=== PATIENT | male | born 1970 | race Caucasian/White ===

== ENCOUNTER 2016-11-12 15:13 | Emergency (ER) | payer OTHER ==
[2016-11-12 15:24] VITALS: BP 125/72; PULSE 80; TEMP 98.4; BMI 28.1
[2016-11-12] MEDS ORDERED: ALBUTEROL SO4 2.5/IPRATROPIUM 0.5 INH SOL 3 ML VIAL.NEB. NEB ONE ×2 (16:37→16:42)
[2016-11-12] MEDS ORDERED: KETOROLAC TROMETHAMINE 60 MG/2 ML VIAL IM ONE (16:38)
[2016-11-12] MEDS ORDERED: KETOROLAC TROMETHAMINE 60 MG/2 ML VIAL ONE (16:42)
--- NOTE | 2016-11-12 18:01 | PDOC ---
History of Present Illness - General Chief Complaint: Headache Stated Complaint: HEADACHE Time Seen by Provider: 11/12/16 15:36 History Source: Patient, Patient Financial Specialist Used - History of Present Illness Initial Comments: 11/12/16 15:47 Pt. is a 46 y/o male with a PMH of asthma, presenting to [facility] complaining of headache x1 day and chest pain. The history and physical was completed with a elementary summer school teacher #[id number]. Pt. states his headache started yesterday and he saw "flashing lights" prior to his headache. The headache is on his left side and also goes to above the L eye. He describes the pain as throbbing and rates it a 5/10 in severity. Denies photo/phonophobia, N/V, fevers, chills, neck stiffness. Pt. also states he has chest pain for 8 months. He states the pain is sharp and on his left side. He states the pain is worse with a deep breath. He rates his chest pain a 4/10 He states he has needed his albuterol inhaler the past three days. Denies palpitations, edema, SOB. Past History - Past Medical History Allergies/Adverse Reactions: Allergies Allergy/AdvReac Type Severity Reaction Status Date / Time No Known Allergies Allergy Verified 11/12/16 15:20 Home Medications: Ambulatory Orders Albuterol Sulfate Inhaler - [Ventolin HFA Inhaler -] 2 inh PO Q4H PRN #1 inhaler 05/28/16 Clonazepam [Klonopin] 1 mg PO BID 05/28/16 Ibuprofen 800 mg PO TID PRN #21 tablet 11/12/16 Prednisone 20 mg PO BID #20 tablet 11/12/16 Asthma: Yes - Psycho/Social/Smoking Cessation Hx Anxiety: No Suicidal Ideation: No Smoking History: Never smoked Have you smoked in the past 12 months: No Number of Cigarettes Smoked Daily: 0 Information on smoking cessation initiated: No Hx Alcohol Use: No Drug/Substance Use Hx: No Substance Use Type: None Hx Substance Use Treatment: No *Physical Exam - Vital Signs Last Vital Signs Temp Pulse Resp BP Pulse Ox 98.4 F 80 16 125/72 98 11/12/16 15:22 11/12/16 15:22 11/12/16 15:22 11/12/16 15:22 11/12/16 15:22 - Physical Exam Comments: 11/12/16 15:56 General: NAD, AAOx3, sitting in chair with lights on in room AAOx3, VSS Head: Atraumatic; normocephalic ENT: PERRLA, EOMI, no sceral icterus. TM's pearly olsen with good landmarks and cone of light. No congestion noted. No redness of the posterior pharynx. Tonsils 1+ in size Neck: FROM without pain, (-) LAD Cardiac: Normal rate and rhythm. S1 and S2 heard. No M/R/G Pulmonary: Scattered wheezing heard B/L with fair aeration to the bases. Equal b/l chest rise. Neuro: Alert, awake, appropriate. Cranial nerves 2-12 intact. No deficits to light touch and temperature in face, upper extremities and lower extremities. No motor deficits in the face, upper/lower extremities. Normoreflexic in the upper and lower extremities. Signal Circuit Designer strength equal B/L. Normal speech. Toes are down- going bilaterally. Gait is normal without ataxia. EKG: Rate 60 bpm; normal sinus rhythm, no acute ST-T wave changes. ED Treatment Course - Medications Given in the ED: ED Medications Discontinued Medications Generic Name Dose Route Start Last Admin Trade Name Freq PRN Reason Stop Dose Admin Albuterol/Ipratropium 1 amp 11/12/16 16:37 11/12/16 17:03 Duoneb - NEB 11/12/16 16:38 1 amp ONCE ONE Administration Ketorolac Tromethamine 60 mg 11/12/16 16:38 11/12/16 17:03 Toradol Injection - IM 11/12/16 16:39 60 mg ONCE ONE Administration Medical Decision Making - Medical Decision Making 11/12/16 16:15 Mr. Khan is a 46 y/o male with a PMH of asthma who presents to [facility] with a headache and chest pain. Pt. did describe an aura prior to the onset of his headache. Neuro exam normal and the headache is unilateral. Most likely a migraine; will give toradol and re-evaluate. Given normal EKG, reproducible pain with a big breath, and the duration of the chest pain, less likely cardiac causes. Wheezing on exam, will give a duoneb treatment and re-evaluate 11/12/16 17:00 Duoneb treatment administered and lungs were re-examined. Pt. reports relief of chest pain and lungs are now clear on exam with fair aeration to the bases. Pt. also reports relief of his headache as his pain is now a 1/10. Discussed that the patient should use his albuterol inhaler daily for the next five days. Was also prescribed prednisone. Advised pt should see his PCP within the week, Pt. states he has an appointment tomorrow. Will discharge home at this time. *DC/Admit/Observation/Transfer Diagnosis at time of Disposition: Asthma exacerbation Headache Qualifiers: Headache type: unspecified Headache chronicity pattern: acute headache Intractability: not intractable Qualified Code(s): R51 - Headache - Discharge Dispostion Disposition: HOME Condition at time of disposition: Improved Admit: No - Prescriptions Prescriptions: Ibuprofen 800 mg PO TID PRN #21 tablet PRN Reason: Pain Prednisone 20 mg PO BID #20 tablet - Patient Instructions Printed Discharge Instructions: DI for Headache, Asthma -- Adult Additional Instructions: You have a headache and a asthma exacerbation. Take prednisone 20mg twice a day for 5 days for the asthma. Use your inhaler as needed. Take ibuprofen 800mg, for headache pain. Follow up with your primary care doctor. Return to the ED if you have, worsening chest pain, SOB, or worsening pain of your headache. Print Language: FRENCH - Post Discharge Activity Work/School Note: Back to Work
== END 2016-11-12 18:30 | disposition home or self-care (01) ==
LOC: JERFT 15:13
PROC: 3E0F7GC Introduction of Other Therapeutic Substance into Respiratory Tract, Via Natural or Artificial Opening (ICD-10-PCS; principal; 2016-11-12)
PROC: 3E0233Z Introduction of Anti-inflammatory into Muscle, Percutaneous Approach (ICD-10-PCS; 2016-11-12)
DX: J45.909 Unspecified asthma, uncomplicated (principal); R51 Headache
CPT/HCPCS: 94640; 96372; 99281-25

== ENCOUNTER 2017-05-02 15:11 | Emergency (ER) | payer SELFPAY ==
[2017-05-02 15:17] VITALS: BMI 32.3
[2017-05-02] MEDS ORDERED: IBUPROFEN 600 MG TABLET (FP) PO ONE ×2 (16:33→17:01)
--- NOTE | 2017-05-02 16:33 | PDOC ---
History of Present Illness - General Chief Complaint: Pain, Acute Stated Complaint: ABD PAIN Time Seen by Provider: 05/02/17 15:24 - History of Present Illness Initial Comments: 46 y/o male with a PMH of asthma and anxiety presenting with acute on chronic chest pain. States that he has had this pain before for at least a year but it is more severe today. Describes the pain as a sharp 4/10 non pleuritic, non positional, non exertional, non radiating pain that does not co-present with nausea, vomiting, diaphoresis, or SOB. He has not taken any medication for the pain either. Denies feves, chills, nausea, comiting, or any sick symptpms. He has been seen in the past for chest pain lat year with negative troponins and negative workup. 05/02/17 16:41 Past History - Past Medical History Allergies/Adverse Reactions: Allergies Allergy/AdvReac Type Severity Reaction Status Date / Time No Known Allergies Allergy Verified 05/02/17 15:12 Home Medications: Ambulatory Orders NK [No Known Home Medication] 05/02/17 Asthma: Yes - Suicide/Smoking/Psychosocial Hx Smoking History: Never smoked Have you smoked in the past 12 months: No Number of Cigarettes Smoked Daily: 0 Information on smoking cessation initiated: No Hx Alcohol Use: No Drug/Substance Use Hx: No Substance Use Type: None Hx Substance Use Treatment: No Review of Systems - Review of Systems Constitutional: No: Chills, Diaphoresis, Fever HEENTM: No: Blurred Vision, Recent change in vision, Double Vision Respiratory: No: Cough, Shortness of Breath Cardiac (ROS): Yes: Chest Pain. No: Irregular Heart Rate, Chest Tightness ABD/GI: No: Constipated : No: Burning, Dysuria, Discharge Musculoskeletal: No: Back Pain Neurological: No: Headache, Numbness *Physical Exam - Vital Signs Last Vital Signs Temp Pulse Resp BP Pulse Ox 98.1 F 84 20 135/7 97 05/02/17 15:14 05/02/17 15:14 05/02/17 15:14 05/02/17 15:14 05/02/17 15:14 - Physical Exam General Appearance: Yes: Nourished, Appropriately Dressed. No: Apparent Distress HEENT: positive: EOMI, JOSSELIN, Normal ENT Inspection, Normal Voice Neck: positive: Trachea midline, Normal Thyroid, Supple. negative: Tender, Rigid Respiratory/Chest: positive: Chest Tender (Tenderness in the left inframamary crease), Lungs Clear, Normal Breath Sounds. negative: Respiratory Distress, Accessory Muscle Use Cardiovascular: positive: Regular Rhythm, Regular Rate Gastrointestinal/Abdominal: positive: Normal Bowel Sounds, Flat, Soft. negative : Tender Musculoskeletal: positive: Normal Inspection Integumentary: positive: Normal Color, Dry, Warm Neurologic: positive: Fully Oriented, Alert, Normal Mood/Affect Heart Score/ECG Review - ST and T Non Specific ST-T Wave changes: Yes ED Treatment Course - LABORATORY CBC & Chemistry Diagram: 05/02/17 16:12 05/02/17 16:12 Medical Decision Making - Medical Decision Making 46 year old male with sharp chest pain without copresenting symptoms or alarming quality. Improved after 600 ibuprofen. Trop and EKG negative. Non specific ST changes in V2 and V3. Will DC home with cards followup. 05/02/17 19:31 *DC/Admit/Observation/Transfer Diagnosis at time of Disposition: Chest pain - Discharge Dispostion Disposition: HOME Condition at time of disposition: Improved Admit: No - Referrals Referrals: Raymundo Vang MD [Staff Physician] - - Patient Instructions Additional Instructions: Please make an appointment with the hogshead press operator on this sheet.
[2017-05-02] MEDS ORDERED: ALBUTEROL SO4 2.5/IPRATROPIUM 0.5 INH SOL 3 ML VIAL.NEB. NEB ONE ×2 (16:40→17:01)
[2017-05-02 16:44] LABS: BASOPHIL 0.7 % (0-2.0); EOSINOPHIL 4.8 % (0-4.5); MCH 29.7 pg (25.7-33.7); MCHC 33.6 g/dl (32.0-35.9); MEAN CELL VOLUME 88.5 fl (80-96); MEAN PLT VOLUME 8.9 fl (7.5-11.1); NEUTROPHILS 67.4 % (42.8-82.8); PLATELET COUNT 252 K/MM3 (134-434); RDW 13.8 % (11.9-15.9); WHITE BLOOD COUNT 7.8 K/mm3 (4.0-10.0)
--- NOTE | 2017-05-02 17:01 | PDOC ---
Attending Attestation - Resident Resident Name: Smith Montague - ED Attending Attestation I have performed the following: I have examined & evaluated the patient, The case was reviewed & discussed with the resident, I agree w/resident's findings & plan, Exceptions are as noted - HPI HPI: 05/02/17 16:58 46y M no pmhx presents with complaint of substernal chest pressure 5/10, intermittent, non exertional, non pleuritic, no associtaed n/v, diaphoresis, sob. last episode was at 8am, onset after he swallowed something, and the nresolved. pt notes he has had intermittent cp for the past year but todays cp was a bit different from previous. no exertional sypmtoms. pt works in [employer]. no smoking, recreational drug use pmd: lesly - Physicial Exam PE: 05/02/17 19:22 GENERAL: The patient is awake, alert, and fully oriented, Nontoxic - in no acute distress. HEAD: Normocephalic, atraumatic. EYES: extraocular movements intact, sclera anicteric, conjunctiva clear. ENT: Normal voice, Moist mucous membranes. NECK: Normal range of motion, supple LUNGS: Breath sounds equal, clear to auscultation bilaterally. No wheezes, no rhonchi, no rales. HEART: Regular rate and rhythm, normal S1 and S2 without murmur, rub or gallop. ABDOMEN: Soft, nontender, normoactive bowel sounds. No guarding, no rebound. . No CVA tenderness EXTREMITIES: Normal range of motion, no edema. No clubbing or cyanosis. No cords, erythema, or tenderness. NEUROLOGICAL: No facial assymetry, Normal speech, PSYCH: Normal mood, normal affect. SKIN: Warm, Dry, normal turgor, - Medical Decision Making 05/02/17 19:22 suspect his pain this AM was GI in nature will obtian trop x 1 currently asypmtomatic will dc with pmd fu and cardiology follow up for his chronic chest pain Heart Score/ECG Review - ECG Impressions Comment:: 05/02/17 19:23 Twelve-lead EKG was performed and reviewed by me. There is normal sinus rhythm with a normal rate. Rate of 70 The axis is normal. The intervals are normal. There is normal R wave progression There are no ST or T wave abnormalities. Impression: Normal twelve-lead EKG
[2017-05-02 17:09] LABS: ALBUMIN 3.8 g/dl (3.4-5.0); ANION GAP 10 (8-16); CALCIUM 8.9 mg/dL (8.5-10.1); CO2 27 mmol/L (21-32); GLUCOSE,RANDOM 87 mg/dL (74-106); SGOT/AST 18 U/L (15-37); SGPT/ALT 25 U/L (12-78)
[2017-05-02 17:13] LABS: ALK PHOS 114 U/L (45-117); BILIRUBIN,TOTAL 0.9 mg/dL (0.2-1.0); CPK 163 IU/L (39-308); TOT PROT 7.5 g/dl (6.4-8.2); TROPONIN I < 0.02 ng/ml (0.00-0.05)
[2017-05-02 18:15] LABS: CPK 156 IU/L (39-308); TROPONIN I < 0.02 ng/ml (0.00-0.05)
[2017-05-02 19:05] VITALS: BP 132/66; PULSE 67; TEMP 98.7
--- NOTE | 2017-05-03 19:13 | EKG ---
Test Reason : Blood Pressure : / mmHG Vent. Rate : 070 BPM Atrial Rate : 070 BPM P-R Int : 150 ms QRS Dur : 084 ms QT Int : 356 ms P-R-T Axes : 054 030 033 degrees QTc Int : 384 ms NORMAL SINUS RHYTHM NORMAL ECG WHEN COMPARED WITH ECG OF 02-FEB-2016 19:04, NO SIGNIFICANT CHANGE WAS FOUND REPEAT EKG IF CLINICALLY INDICATED Confirmed by CLAUDIA CHACON MD ([id number]) on 05/03/2017 7:13:09 PM Referred By: Confirmed By:CLAUDIA CHACON MD
== END 2017-05-02 19:58 | disposition home or self-care (01) ==
LOC: JER 15:11
PROC: 3E0F7GC Introduction of Other Therapeutic Substance into Respiratory Tract, Via Natural or Artificial Opening (ICD-10-PCS; principal; 2017-05-02)
DX: R07.9 Chest pain, unspecified (principal); F41.9 Anxiety disorder, unspecified; J45.909 Unspecified asthma, uncomplicated
CPT/HCPCS: 36415; 80053; 82553; 83690; 84484; 85025; 93005; 93010; 99283-25

== ENCOUNTER 2017-11-04 17:36 | Emergency (ER) | payer SELFPAY ==
--- NOTE | 2017-11-04 17:47 | PDOC ---
Rapid Medical Evaluation Time Seen by Provider: 11/04/17 17:45 Medical Evaluation: Allergies Allergy/AdvReac Type Severity Reaction Status Date / Time No Known Allergies Allergy Verified 05/02/17 15:12 11/04/17 17:45 I have performed a brief in-person evaluation of this patient. The patient presents with a chief complaint of: new onset chest pain, "like burning pressure" 02/03, hx of asthma Pertinent physical exam findings: VSS I have ordered the following: ekg, cxr, labs The patient will proceed to the ED for further evaluation. Discharge Disposition - Diagnosis Chest pain - Referrals - Patient Instructions - Post Discharge Activity
[2017-11-04 17:48] VITALS: BP 146/89; PULSE 76; TEMP 98.6; BMI 31.2
[2017-11-04 19:18] LABS: BASO % 0.8 % (0-2.0); EOS % 4.9 % (0-4.5); HEMATOCRIT 47.9 % (35.4-49); HEMOGLOBIN 16.5 GM/dL (11.7-16.9); LYMPH % 18.8 % (8-40); MCH 30.4 pg (25.7-33.7); MCHC 34.5 g/dl (32.0-35.9); MEAN CELL VOLUME 88.2 fl (80-96); MEAN PLT VOLUME 8.7 fl (7.5-11.1); MONO % 6.8 % (3.8-10.2); NEUT % 68.7 % (42.8-82.8); PLATELET COUNT 280 K/MM3 (134-434); RBC 5.43 M/mm3 (4.00-5.60); WHITE BLOOD COUNT 8.3 K/mm3 (4.0-10.0)
[2017-11-04 19:38] LABS: INR 1.05 (0.82-1.09); PROTHROMBIN TIME (PATIENT) 11.9 SEC (9.98-11.88)
[2017-11-04 21:12] LABS: ALBUMIN 4.3 g/dl (3.4-5.0); ALK PHOS 120 U/L (45-117); ANION GAP 6 (8-16); BILIRUBIN,TOTAL 0.4 mg/dL (0.2-1.0); BLOOD UREA NITROGEN 15 mg/dL (7-18); CALCIUM 8.9 mg/dL (8.5-10.1); CHLORIDE 104 mmol/L (98-107); CO2 27 mmol/L (21-32); CREATININE 0.9 mg/dL (0.7-1.3); GLUCOSE,RANDOM 101 mg/dL (74-106); MAGNESIUM 2.3 mg/dL (1.8-2.4); POTASSIUM 4.1 mmol/L (3.5-5.1); SGOT/AST 19 U/L (15-37); SGPT/ALT 30 U/L (12-78); SODIUM 137 mmol/L (136-145); TOT PROT 8.2 g/dl (6.4-8.2)
[2017-11-05] MEDS ORDERED: PANTOPRAZOLE 40 MG TABLET (FP) PO ONE (03:14)
--- NOTE | 2017-11-05 03:14 | PDOC ---
History of Present Illness - General History Source: Patient Exam Limitations: No Limitations - History of Present Illness Initial Comments: 11/05/17 04:16 The patient is a 47 year old male with a significant PMH of anxiety and asthma who presents to the emergency department with chest pain beginning approximately last night. The patient describes his chest pain as a moderate discomfort localized in the epigastric region with radiation across his chest. He reports eating yesterday at about 5PM and subsequently developing this sensation. The patient reports mild chest discomfort at presentation. He denies past history of diabetes or HTN. The patient denies shortness of breath, headache and dizziness. Denies fever, chills, nausea, vomit, diarrhea and constipation. Denies dysuria, frequency, urgency and hematuria. Allergies: NKA Past surgical history: None reported. Social history: No reported cigarette, alcohol, or drug use. PCP: Dr. Kaiser Hannon <Kirk Morin - Last Filed: 11/05/17 04:17> - General History Source: Patient <Obye Steinberg - Last Filed: 11/05/17 19:28> - General Chief Complaint: Chest Pain Stated Complaint: CHEST PAIN Time Seen by Provider: 11/04/17 17:45 Past History <Kirk Morin - Last Filed: 11/05/17 04:17> - Past Medical History Asthma: Yes COPD: No Psychiatric Problems: Yes (anxiety) - Suicide/Smoking/Psychosocial Hx Smoking History: Never smoked Have you smoked in the past 12 months: No Number of Cigarettes Smoked Daily: 0 Information on smoking cessation initiated: No Hx Alcohol Use: No Drug/Substance Use Hx: No Substance Use Type: None Hx Substance Use Treatment: No <Obey Steinberg - Last Filed: 11/05/17 19:28> - Past Medical History Allergies/Adverse Reactions: Allergies Allergy/AdvReac Type Severity Reaction Status Date / Time No Known Allergies Allergy Verified 11/04/17 17:48 Home Medications: Ambulatory Orders Pantoprazole Sodium [Protonix] 40 mg PO ONCE #30 tablet.ec 11/05/17 Review of Systems - Review of Systems Able to Perform ROS?: Yes Comments:: 11/05/17 04:16 CONSTITUTIONAL: Absent: fever, chills, diaphoresis, generalized weakness, malaise, loss of appetite HEENT: Absent: rhinorrhea, nasal congestion, throat pain, throat swelling, difficulty swallowing, mouth swelling, ear pain, eye pain, visual Changes CARDIOVASCULAR: (+) Chest discomfort with radiation from epigastric region. Absent: syncope, palpitations, irregular heart rate, lightheadedness, peripheral edema RESPIRATORY: Absent: cough, shortness of breath, dyspnea with exertion, orthopnea, wheezing, stridor, hemoptysis GASTROINTESTINAL: Absent: abdominal pain, abdominal distension, nausea, vomiting, diarrhea, constipation, melena, hematochezia GENITOURINARY: Absent: dysuria, frequency, urgency, hesitancy, hematuria, flank pain, genital pain MUSCULOSKELETAL: Absent: myalgia, arthralgia, joint swelling SKIN: Absent: rash, itching, pallor HEMATOLOGIC/IMMUNOLOGIC: Absent: easy bleeding, easy bruising, lymphadenopathy, frequent infections ENDOCRINE: Absent: unexplained weight gain, unexplained weight loss, heat intolerance, cold intolerance NEUROLOGIC: Absent: headache, focal weakness or paresthesias, dizziness, unsteady gait, seizure, mental status changes, bladder or bowel incontinence PSYCHIATRIC: Absent: anxiety, depression, suicidal or homicidal ideation, hallucinations. <Kirk Morin - Last Filed: 11/05/17 04:17> *Physical Exam - Vital Signs Last Vital Signs Temp Pulse Resp BP Pulse Ox 98.6 F 76 19 146/89 98 11/04/17 17:47 11/04/17 17:47 11/04/17 17:47 11/04/17 17:47 11/04/17 17:47 - Physical Exam Comments: 11/05/17 04:16 GENERAL: Well developed, well nourished. Awake and alert. No acute distress. HEENT: Normocephalic, atraumatic. PERRLA, EOMI. No conjunctival pallor. Sclera are non- icteric. Moist mucous membranes. Oropharynx is clear. NECK: Supple. Full ROM. No JVD. Carotid pulses 2+ and symmetric, without bruits. No thyromegaly. No lymphadenopathy. CARDIOVASCULAR: Regular rate and rhythm. No murmurs, rubs, or gallops. Distal pulses are 2+ and symmetric. PULMONARY: No evidence of respiratory distress. Lungs clear to auscultation bilaterally. No wheezing, rales or rhonchi. ABDOMINAL: Soft. Non-tender. Non-distended. No rebound or guarding. No organomegaly. Normoactive bowel sounds. MUSCULOSKELETAL Normal range of motion at all joints. No bony deformities or tenderness. No CVA tenderness. EXTREMITIES: No cyanosis. No clubbing. No edema. No calf tenderness. SKIN: Warm and dry. Normal capillary refill. No rashes. No jaundice. NEUROLOGICAL: Alert, awake, appropriate. Cranial nerves 2-12 intact. No deficits to light touch and temperature in face, upper extremities and lower extremities. No motor deficits in the in face, upper extremities and lower extremities. Normoreflexic in the upper and lower extremities. Normal speech. Toes are downgoing bilaterally. Gait is normal without ataxia. PSYCHIATRIC: Cooperative. Good eye contact. Appropriate mood and affect. <Kirk Morin - Last Filed: 11/05/17 04:17> - Vital Signs Last Vital Signs Temp Pulse Resp BP Pulse Ox 98.6 F 76 19 146/89 98 11/04/17 17:47 11/04/17 17:47 11/04/17 17:47 11/04/17 17:47 11/04/17 17:47 <Obey Steinberg - Last Filed: 11/05/17 19:28> Heart Score/ECG Review #1 11/05/17 04:17 EKG done at 17:43 Vent rate 75 bpm Normal sinus rhythm Normal ECG <Kirk Morin - Last Filed: 11/05/17 04:17> ED Treatment Course - LABORATORY CBC & Chemistry Diagram: 11/04/17 18:56 11/04/17 20:33 - ADDITIONAL ORDERS Additional order review: Laboratory Results 11/05/17 11/04/17 11/04/17 03:26 20:33 20:33 PT with INR INR Sodium 137 Potassium 4.1 Chloride 104 Carbon Dioxide 27 Anion Gap 6 L BUN 15 Creatinine 0.9 Creat Clearance w eGFR > 60 Random Glucose 101 Calcium 8.9 Magnesium 2.3 Total Bilirubin 0.4 D AST 19 ALT 30 Alkaline Phosphatase 120 H Creatine Kinase 141 153 Creatine Kinase Index 0.6 CK-MB (CK-2) < 1.000 Troponin I < 0.02 < 0.02 Total Protein 8.2 Albumin 4.3 11/04/17 11/04/17 11/04/17 18:56 18:56 18:56 PT with INR 11.90 H INR 1.05 Sodium Cancelled Potassium Cancelled Chloride Cancelled Carbon Dioxide Cancelled Anion Gap Cancelled BUN Cancelled Creatinine Cancelled Creat Clearance w eGFR Cancelled Random Glucose Cancelled Calcium Cancelled Magnesium Cancelled Total Bilirubin Cancelled AST Cancelled ALT Cancelled Alkaline Phosphatase Cancelled Creatine Kinase Cancelled Creatine Kinase Index CK-MB (CK-2) Troponin I Cancelled Total Protein Cancelled Albumin Cancelled 11/04/17 18:56 RBC 5.43 MCV 88.2 MCHC 34.5 RDW 14.0 MPV 8.7 Neutrophils % 68.7 Lymphocytes % 18.8 Monocytes % 6.8 Eosinophils % 4.9 H Basophils % 0.8 - Medications Given in the ED: ED Medications Discontinued Medications Generic Name Dose Route Start Last Admin Trade Name Freq PRN Reason Stop Dose Admin Pantoprazole Sodium 40 mg 11/05/17 03:14 11/05/17 03:20 Protonix - PO 11/05/17 03:15 40 mg ONCE ONE Administration <Kirk Morin - Last Filed: 11/05/17 04:17> - LABORATORY CBC & Chemistry Diagram: 11/04/17 18:56 11/04/17 20:33 - ADDITIONAL ORDERS Additional order review: Laboratory Results 11/04/17 11/04/17 11/04/17 20:33 20:33 18:56 PT with INR INR Sodium 137 Potassium 4.1 Chloride 104 Carbon Dioxide 27 Anion Gap 6 L BUN 15 Creatinine 0.9 Creat Clearance w eGFR > 60 Random Glucose 101 Calcium 8.9 Magnesium 2.3 Cancelled Total Bilirubin 0.4 D AST 19 ALT 30 Alkaline Phosphatase 120 H Creatine Kinase 153 Creatine Kinase Index 0.6 CK-MB (CK-2) < 1.000 Troponin I < 0.02 Total Protein 8.2 Albumin 4.3 11/04/17 11/04/17 18:56 18:56 PT with INR 11.90 H INR 1.05 Sodium Cancelled Potassium Cancelled Chloride Cancelled Carbon Dioxide Cancelled Anion Gap Cancelled BUN Cancelled Creatinine Cancelled Creat Clearance w eGFR Cancelled Random Glucose Cancelled Calcium Cancelled Magnesium Total Bilirubin Cancelled AST Cancelled ALT Cancelled Alkaline Phosphatase Cancelled Creatine Kinase Cancelled Creatine Kinase Index CK-MB (CK-2) Troponin I Cancelled Total Protein Cancelled Albumin Cancelled 11/04/17 18:56 RBC 5.43 MCV 88.2 MCHC 34.5 RDW 14.0 MPV 8.7 Neutrophils % 68.7 Lymphocytes % 18.8 Monocytes % 6.8 Eosinophils % 4.9 H Basophils % 0.8 <Obey Steinberg - Last Filed: 11/05/17 19:28> Medical Decision Making - Medical Decision Making 11/05/17 19:28 scribe noteDr. Idris: The scribe's documentation has been prepared under my direction and personally reviewed by me in its entirery. I confirm that the note above accurately reflects all work, treatment, procedures, and medical decision making performed by me. <Obey Steinberg - Last Filed: 11/05/17 19:28> *DC/Admit/Observation/Transfer - Attestations Scribe Attestion: 11/05/17 04:18 Documentation prepared by Kirk Morin, acting as forensic medical examiner for Obey Steinberg DO. <Kirk Morin - Last Filed: 11/05/17 04:17> - Discharge Dispostion Admit: No <Obey Steinberg - Last Filed: 11/05/17 19:28> Diagnosis at time of Disposition: Chest pain - Discharge Dispostion Disposition: HOME Condition at time of disposition: Stable - Prescriptions Prescriptions: Pantoprazole Sodium [Protonix] 40 mg PO ONCE #30 tablet.ec - Referrals Referrals: Melanie De Leon MD [Primary Care Provider] - Daquan Arceo MD [Staff Physician] - Chan Hinkle MD [Staff Physician] - - Patient Instructions Printed Discharge Instructions: DI for Chest Pain Additional Instructions: Please follow up with your doctor or the doctor referred to you if you develope chest pain. Return if any problems. Print Language: EQUATORIAL GUINEAN - Post Discharge Activity
[2017-11-05] MEDS ORDERED: PANTOPRAZOLE 40 MG TABLET (FP) ONE (03:17)
--- NOTE | 2017-11-05 11:05 | EKG ---
Test Reason : Blood Pressure : / mmHG Vent. Rate : 075 BPM Atrial Rate : 075 BPM P-R Int : 150 ms QRS Dur : 090 ms QT Int : 348 ms P-R-T Axes : 050 011 039 degrees QTc Int : 388 ms NORMAL SINUS RHYTHM NORMAL ECG WHEN COMPARED WITH ECG OF 02-MAY-2017 16:22, NO SIGNIFICANT CHANGE WAS FOUND Confirmed by ERIKA ALLISON MD ([id number]) on 11/05/2017 11:05:39 AM Referred By: Confirmed By:ERIKA ALLISON MD
== END 2017-11-05 04:12 | disposition home or self-care (01) ==
LOC: JER 17:36
DX: R07.89 Other chest pain (principal); J45.909 Unspecified asthma, uncomplicated; F41.9 Anxiety disorder, unspecified
CPT/HCPCS: 36415; 71046-TC-FY; 80053; 82550; 82553; 83735; 84484; 85025; 85610; 93005; 93010; 99282-25

== ENCOUNTER 2017-11-24 18:59 | Emergency (ER) | payer SELFPAY ==
[2017-11-24 19:04] VITALS: BMI 32.2
[2017-11-24] MEDS ORDERED: ACETAMINOPHEN 1000 MG/100 ML VIAL (NON FORMULARY) IVPB ONE (20:04)
[2017-11-24] MEDS ORDERED: SODIUM CHLORIDE 1,000 ML IV STA (20:05)
[2017-11-24 20:20] LABS: BASO % 0.2 % (0-2.0); EOS % 0.1 % (0-4.5); HEMATOCRIT 39.9 % (35.4-49); HEMOGLOBIN 13.8 GM/dL (11.7-16.9); LYMPH % 3.9 % (8-40); MCH 30.6 pg (25.7-33.7); MCHC 34.7 g/dl (32.0-35.9); MEAN CELL VOLUME 88.1 fl (80-96); MEAN PLT VOLUME 8.9 fl (7.5-11.1); MONO % 4.1 % (3.8-10.2); NEUT % 91.7 % (42.8-82.8); PLATELET COUNT 199 K/MM3 (134-434); RBC 4.53 M/mm3 (4.00-5.60); RDW 13.8 % (11.9-15.9); WHITE BLOOD COUNT 15.3 K/mm3 (4.0-10.0)
[2017-11-24 20:23] LABS: URINE APPEARANCE CLEAR; URINE BILIRUBIN NEGATIVE (<2.0 mg/dL); URINE BLOOD 1+ (NEGATIVE); URINE COLOR STRAW; URINE GLUCOSE (UA) NEGATIVE (NEGATIVE); URINE KETONE NEGATIVE (NEGATIVE); URINE LEUK ESTERASE NEGATIVE (NEGATIVE); URINE NITRITE NEGATIVE (NEGATIVE); URINE PROTEIN NEGATIVE (NEGATIVE); URINE UROBILINOGEN NEGATIVE mg/dL (0.2-1.0)
--- NOTE | 2017-11-24 20:38 | PDOC ---
History of Present Illness <Marina Torresan - Last Filed: 11/24/17 22:38> - General History Source: Patient Exam Limitations: No Limitations - History of Present Illness Initial Comments: 11/24/17 20:28 47 with pmh of asthma and anxiety presents with lower right-sided back pain and low grade fever for the past few hours. 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 Complains of some muscular pain over thighs but denies pains and needles, numbness or weakness over legs. States his fever earlier today was "114" <King Davey - Last Filed: 11/24/17 22:48> - General Chief Complaint: Pain Stated Complaint: FEVER Time Seen by Provider: 11/24/17 19:39 Past History <Riccardo Torres - Last Filed: 11/24/17 22:38> - Past Medical History Asthma: Yes COPD: No Psychiatric Problems: Yes (anxiety) - Suicide/Smoking/Psychosocial Hx Smoking History: Never smoked Have you smoked in the past 12 months: No Number of Cigarettes Smoked Daily: 0 Information on smoking cessation initiated: No Hx Alcohol Use: No Drug/Substance Use Hx: No Substance Use Type: None Hx Substance Use Treatment: No <King Davey - Last Filed: 11/24/17 22:48> - Past Medical History Allergies/Adverse Reactions: Allergies Allergy/AdvReac Type Severity Reaction Status Date / Time No Known Allergies Allergy Verified 11/24/17 19:00 Home Medications: Ambulatory Orders Pantoprazole Sodium [Protonix] 40 mg PO ONCE #30 tablet.ec 11/05/17 Azithromycin 250 mg PO DAILY #4 tablet 11/24/17 Review of Systems - Review of Systems Able to Perform ROS?: Yes Is the patient limited French proficient: Yes Constitutional: Yes: Fever HEENTM: No: Symptoms Reported Respiratory: No: Symptoms reported Cardiac (ROS): No: Symptoms Reported ABD/GI: No: Symptoms Reported : No: Symptoms Reported Musculoskeletal: Yes: See HPI Integumentary: No: Symptoms Reported Neurological: No: Symptoms reported All Other Systems: Reviewed and Negative <King Davey - Last Filed: 11/24/17 22:48> *Physical Exam - Vital Signs Last Vital Signs Temp Pulse Resp BP Pulse Ox 100.0 F H 115 H 18 119/73 100 11/24/17 19:02 11/24/17 19:02 11/24/17 19:02 11/24/17 19:02 11/24/17 19:02 <Riccardo Torres - Last Filed: 11/24/17 22:38> - Vital Signs Last Vital Signs Temp Pulse Resp BP Pulse Ox 100.0 F H 115 H 18 119/73 100 11/24/17 19:02 11/24/17 19:02 11/24/17 19:02 11/24/17 19:02 11/24/17 19:02 - Physical Exam General Appearance: Yes: Nourished, Appropriately Dressed. No: Apparent Distress HEENT: positive: EOMI, JOSSELIN, Normal ENT Inspection Respiratory/Chest: positive: Lungs Clear, Normal Breath Sounds. negative: Chest Tender, Respiratory Distress Cardiovascular: positive: Regular Rhythm, Regular Rate, S1, S2 Gastrointestinal/Abdominal: positive: Normal Bowel Sounds, Flat, Soft. negative : Tender Musculoskeletal: positive: Normal Inspection. negative: CVA Tenderness, Vertebral Tenderness Integumentary: positive: Normal Color, Dry, Warm Neurologic: positive: Fully Oriented, Alert, Normal Mood/Affect, Normal Response , Motor Strength 5/5 <King Davey - Last Filed: 11/24/17 22:48> ED Treatment Course - LABORATORY CBC & Chemistry Diagram: 11/24/17 20:15 11/24/17 20:15 - ADDITIONAL ORDERS Additional order review: Laboratory Results 11/24/17 11/24/17 20:15 20:15 Sodium 137 Potassium 3.4 L Chloride 104 Carbon Dioxide 29 Anion Gap 4 L BUN 14 Creatinine 1.0 Creat Clearance w eGFR > 60 Random Glucose 93 Calcium 8.4 L Total Bilirubin 0.9 D AST 20 ALT 23 D Alkaline Phosphatase 98 Total Protein 7.3 Albumin 4.0 Urine Color Straw Urine Appearance Clear Urine pH 8.0 D Ur Specific [place] 1.006 Urine Protein Negative Urine Glucose (UA) Negative Urine Ketones Negative Urine Blood 1+ H Urine Nitrite Negative Urine Bilirubin Negative Urine Urobilinogen Negative Ur Leukocyte Esterase Negative Urine WBC (Auto) <1 Urine RBC (Auto) None 11/24/17 21:38 Influenza Types A,B Antigen (PROSPER) - Final Nasopharyngeal Swab - Final 11/24/17 20:15 RBC 4.53 MCV 88.1 MCHC 34.7 RDW 13.8 MPV 8.9 Neutrophils % 91.7 H D Lymphocytes % 3.9 L D Monocytes % 4.1 Eosinophils % 0.1 D Basophils % 0.2 - RADIOLOGY Radiology Studies Ordered: Category Date Time Status CHEST PA & LAT [RAD] Stat Radiology 11/24/17 21:03 Taken - Medications Given in the ED: ED Medications Discontinued Medications Generic Name Dose Route Start Last Admin Trade Name Norberto PRN Reason Stop Dose Admin Acetaminophen 1,000 mg 11/24/17 20:04 11/24/17 20:50 Ofirmev Injection - IVPB 11/24/17 20:05 1,000 mg ONCE ONE Administration Sodium Chloride 1,000 mls @ 1,000 mls/hr 11/24/17 20:05 11/24/17 20:50 Normal Saline - IV 11/24/17 21:04 1,000 mls/hr ASDIR STA Administration <Riccardo Torres - Last Filed: 11/24/17 22:38> - LABORATORY CBC & Chemistry Diagram: 11/24/17 20:15 11/24/17 20:15 - ADDITIONAL ORDERS Additional order review: Laboratory Results 11/24/17 20:15 Urine Color Straw Urine Appearance Clear Urine pH 8.0 D Ur Specific [place] 1.006 Urine Protein Negative Urine Glucose (UA) Negative Urine Ketones Negative Urine Blood 1+ H Urine Nitrite Negative Urine Bilirubin Negative Urine Urobilinogen Negative Ur Leukocyte Esterase Negative Urine WBC (Auto) <1 Urine RBC (Auto) None 11/24/17 20:15 RBC 4.53 MCV 88.1 MCHC 34.7 RDW 13.8 MPV 8.9 Neutrophils % 91.7 H D Lymphocytes % 3.9 L D Monocytes % 4.1 Eosinophils % 0.1 D Basophils % 0.2 <King Davey - Last Filed: 11/24/17 22:48> Medical Decision Making - Medical Decision Making 11/24/17 22:23 47m with pmh of asthma and anxiety on Klonipin every day, presenting with generalized muscle pain and low grade fever. Will draw basic labs, CXR give fluids and tylenol. elevated wbc 11/24/17 22:46 Possible pneumonia on cxr will start patient on azithromycin and follow up outpatient <King Davey - Last Filed: 11/24/17 22:48> *DC/Admit/Observation/Transfer <MelissaRiccardo - Last Filed: 11/24/17 22:38> <King Davey - Last Filed: 11/24/17 22:48> Diagnosis at time of Disposition: CAP (community acquired pneumonia) - Prescriptions Prescriptions: Azithromycin 250 mg PO DAILY #4 tablet - Referrals Referrals: Melanie De Leon MD [Primary Care Provider] - - Patient Instructions Printed Discharge Instructions: DI for Pneumonia -- Adult Additional Instructions: Your X ray showed that you may have pneumonia. Take the antibiotics as prescribed. (Azithromycin 250mg once daily for 4 days, starting tomorrow) Follow up with your primary doctor within 1 week. If you experience high or persistent fevers, chest pain, shortness of breath, or any other concerning symptoms, return to the ER immediately.
[2017-11-24 20:47] LABS: ANION GAP 4 (8-16); BLOOD UREA NITROGEN 14 mg/dL (7-18); CALCIUM 8.4 mg/dL (8.5-10.1); CHLORIDE 104 mmol/L (98-107); CO2 29 mmol/L (21-32); GLUCOSE,RANDOM 93 mg/dL (74-106); POTASSIUM 3.4 mmol/L (3.5-5.1); SGOT/AST 20 U/L (15-37); SODIUM 137 mmol/L (136-145)
[2017-11-24 20:49] LABS: ALK PHOS 98 U/L (45-117); BILIRUBIN,TOTAL 0.9 mg/dL (0.2-1.0); SGPT/ALT 23 U/L (12-78); TOT PROT 7.3 g/dl (6.4-8.2)
--- NOTE | 2017-11-24 21:16 | PDOC ---
Attending Attestation - Resident Resident Name: King Davey - ED Attending Attestation I have performed the following: I have examined & evaluated the patient, The case was reviewed & discussed with the resident, I agree w/resident's findings & plan, Exceptions are as noted - HPI HPI: 11/24/17 21:12 47 M with h/o asthma presents to ED with fevers and bodyaches x 1 day. Pt states that he has had sick contacts at work with similar symptoms. States that he has bodyaches in his sides and legs. Denies any midline back pain, denies leg weakness/numbness. Denies incontinence. Denies saddle anesthesia. Denies IV drug use. Pt states that he also started having fevers today. Does not know what his temperature was. Denies N/V/D. Denies cough. Denies CP/SOB. Denies MILLS/ neck stiffness. - Physicial Exam PE: 11/24/17 21:14 "GENERAL: Awake, alert, and fully oriented, in no acute distress. HEAD: No signs of trauma EYES: PERRLA, EOMI, sclera anicteric, conjunctiva clear ENT: Auricles normal inspection, hearing grossly normal, nares patent, oropharynx clear without exudates. Moist mucosa NECK: Nontender, no stepoffs, Normal ROM, supple, no lymphadenopathy, JVD, or masses LUNGS: Breath sounds equal, clear to auscultation bilaterally. No wheezes, and no crackles HEART: Regular rate and rhythm, normal S1 and S2, no murmurs, rubs or gallops ABDOMEN: Soft, nontender, normoactive bowel sounds. No guarding, no rebound. No masses EXTREMITIES: Normal range of motion, no edema. No clubbing or cyanosis. No cords, erythema, or tenderness NEUROLOGICAL: Cranial nerves II through XII intact. 5/5 strength and sensation in all extremities, Normal speech, normal gait, normal cerebellar function SKIN: Warm, Dry, normal turgor, no rashes or lesions noted. " - Medical Decision Making 11/24/17 21:15 47 M with fevers and bodyaches x 1 day. Possible flu vs other viral syndrome. Pt with no focal infectious symptoms. Is complaining of bodyaches including sides and legs. Does not have any midline spinal tenderness on exam. Normal neuro exam. - Labs, UA, CXR, flu swab - Tylenol, IVF 11/24/17 22:36 Labs notable for leukocytosis 15, otherwise wnl. Prelim read of CXR shows mild infiltrate in lingula. Will cover for CAP with azithro. Pt is well appearing, with normal vitals. Clinically stable for DC at this time. I discussed the physical exam findings, ancillary test results and final diagnoses with the patient. I answered all of the patient's questions. The patient was satisfied with the care received and felt comfortable with the discharge plan and treatment plan. The patient agrees to follow up with the primary care physician within 24-72 hours.
[2017-11-24] MEDS ORDERED: AZITHROMYCIN 500 MG TABLET PO ONE (22:37)
[2017-11-24] MEDS ORDERED: AZITHROMYCIN 250 MG TABLET ONE (22:44)
[2017-11-24 23:31] VITALS: BP 127/68; PULSE 89; TEMP 98.9
== END 2017-11-24 22:59 | disposition home or self-care (01) ==
LOC: JER 18:59
PROC: 3E033NZ Introduction of Analgesics, Hypnotics, Sedatives into Peripheral Vein, Percutaneous Approach (ICD-10-PCS; principal; 2017-11-24)
DX: F41.9 Anxiety disorder, unspecified (principal); J18.9 Pneumonia, unspecified organism; J45.909 Unspecified asthma, uncomplicated
CPT/HCPCS: 36415; 71046-TC-FY; 80053; 81003; 81015; 85025; 87804; 99283-25; J0131; J7030

== ENCOUNTER 2017-12-26 10:47 | Emergency (ER) | payer SELFPAY ==
[2017-12-26 11:01] VITALS: BP 121/80; PULSE 85; TEMP 98; BMI 33.5
[2017-12-26] MEDS ORDERED: IBUPROFEN 400 MG TABLET (FP) PO ONE ×2 (12:44→12:48)
--- NOTE | 2017-12-26 12:50 | PDOC ---
History of Present Illness - General Chief Complaint: Chest Pain Stated Complaint: CHEST PAIN Time Seen by Provider: 12/26/17 12:13 History Source: Patient - History of Present Illness Presenting Symptoms: Chest Pain Timing/Duration: reports: intermittent Severity/Quality: reports: mild Location: reports: other (L chest) Chest Pain Radiation: reports: no radiation Past History - Past Medical History Allergies/Adverse Reactions: Allergies Allergy/AdvReac Type Severity Reaction Status Date / Time No Known Allergies Allergy Verified 12/26/17 10:58 Home Medications: Ambulatory Orders NK [No Known Home Medication] 12/26/17 Asthma: Yes COPD: No Psychiatric Problems: Yes (anxiety) - Suicide/Smoking/Psychosocial Hx Smoking History: Never smoked Have you smoked in the past 12 months: No Number of Cigarettes Smoked Daily: 0 Information on smoking cessation initiated: No Hx Alcohol Use: No Drug/Substance Use Hx: No Substance Use Type: None Hx Substance Use Treatment: No Review of Systems - Review of Systems Constitutional: No: Chills, Fever Respiratory: No: Cough, Shortness of Breath Cardiac (ROS): Yes: Chest Pain *Physical Exam - Vital Signs Last Vital Signs Temp Pulse Resp BP Pulse Ox 98.0 F 85 18 121/80 100 12/26/17 10:58 12/26/17 10:58 12/26/17 10:58 12/26/17 10:58 12/26/17 10:58 - Physical Exam Comments: 12/26/17 12:48 Patient appears comfortable sitting on stretcher, currently listening to music on his phone General Appearance: Yes: Appropriately Dressed. No: Apparent Distress HEENT: positive: Normal Voice Neck: positive: Supple Respiratory/Chest: positive: Lungs Clear, Normal Breath Sounds. negative: Chest Tender, Respiratory Distress Cardiovascular: positive: Regular Rate, S1, S2 Integumentary: positive: Dry, Warm Neurologic: positive: Fully Oriented, Alert, Normal Mood/Affect Medical Decision Making - Medical Decision Making 12/26/17 12:49 47-year-old male, history of asthma, here with left chest pain that started immediately after lifting a heavy pipe at work this am. Unable to describe pain but states it is mild and intermittent. No pain currently. No shortness of breath, diaphoresis, nausea or vomiting. No known cardiac disease and no tobacco use or illicit drug use. Patient well-appearing and stable with unremarkable exam. EKG done in triage and normal as signed off by ED attending. Suspect most likely muscle strain at this time. Dc with reassurance. Reasons to return discussed with patient *DC/Admit/Observation/Transfer Diagnosis at time of Disposition: Chest wall muscle strain Qualifiers: Encounter type: initial encounter Qualified Code(s): S29.011A - Strain of muscle and tendon of front wall of thorax, initial encounter - Discharge Dispostion Disposition: HOME Condition at time of disposition: Good - Referrals - Patient Instructions Printed Discharge Instructions: Muscle Strain Additional Instructions: La causa de tu dolor en el pecho es probablemente muscular. Tu EKG fue normal. [place] Motrin o Tylenol segn sea necesario para el dolor. Retorno por cualquier empeoramiento de los sntomas Print Language: UPPER SORBIAN - Post Discharge Activity Forms/Work/School Notes: Back to Work
--- NOTE | 2017-12-30 13:27 | EKG ---
Test Reason : Blood Pressure : / mmHG Vent. Rate : 078 BPM Atrial Rate : 078 BPM P-R Int : 156 ms QRS Dur : 088 ms QT Int : 352 ms P-R-T Axes : 048 027 026 degrees QTc Int : 401 ms NORMAL SINUS RHYTHM NORMAL ECG WHEN COMPARED WITH ECG OF 04-NOV-2017 17:43, NO SIGNIFICANT CHANGE WAS FOUND Confirmed by MD PERNELL, NIRALI ([id number]) on 12/30/2017 1:26:45 PM Referred By: Confirmed By:NIRALI GIMENEZ MD
== END 2017-12-26 12:51 | disposition home or self-care (01) ==
LOC: JERFT 10:47
DX: S29.011A Strain of muscle and tendon of front wall of thorax, initial encounter (principal); X50.0XXA Overexertion from strenuous movement or load, initial encounter; Y93.89 Activity, other specified; Y92.69 Other specified industrial and construction area as the place of occurrence of the external cause; Y99.0 Civilian activity done for income or pay
CPT/HCPCS: 93005; 93010; 99281-25

== ENCOUNTER 2018-04-20 13:38 | Emergency (ER) | payer SELFPAY ==
[2018-04-20] MEDS ORDERED: ASPIRIN 81 MG CHEWABLE TABLETS PO ONE (13:59)
--- NOTE | 2018-04-20 13:59 | PDOC ---
History of Present Illness - General History Source: Patient Exam Limitations: No Limitations - History of Present Illness Initial Comments: 04/20/18 14:42 The patient is a 47 year old male with a significant past medical history of anxiety who presents to the ER with chest pain one hour prior to arrival. Patient reports the chest pain is sharp. 9/10 in severity, intermittent, that has improved since onset. Patient states he ate and then laid down prior to the onset of the chest pain. Patient denies left arm pain or jaw pain. Patient believed this may be related to his anxiety but reports minimal relief after taking his clonazepam. Patient was also given an aspirin en route to the ER. Patient denies any history of GERD. Patient notes similar symptoms 2 years ago and then 2-3 months ago. Patient did not have a stress test and had a normal ECHO in December 2015. The patient denies shortness of breath, headache, and dizziness. Denies fever, chills, nausea, vomit, diarrhea, and constipation. Denies dysuria, frequency, urgency, and hematuria. Allergies: NKA Past surgical history: None reported. Social history: No reported alcohol, drug, or cigarette use. <Izabella Vargas - Last Filed: 04/20/18 15:18> - General History Source: Patient Exam Limitations: No Limitations <Sofya Schultz - Last Filed: 04/22/18 08:50> - General Chief Complaint: Chest Pain Stated Complaint: CHEST PAIN Time Seen by Provider: 04/20/18 13:58 Past History <Izabella Vargas - Last Filed: 04/20/18 15:18> - Past Medical History Asthma: Yes COPD: No Psychiatric Problems: Yes (anxiety) - Suicide/Smoking/Psychosocial Hx Smoking History: Never smoked Have you smoked in the past 12 months: No Number of Cigarettes Smoked Daily: 0 Hx Alcohol Use: No Drug/Substance Use Hx: No Substance Use Type: None Hx Substance Use Treatment: No <Sofya Schultz - Last Filed: 04/22/18 08:50> - Past Medical History Allergies/Adverse Reactions: Allergies Allergy/AdvReac Type Severity Reaction Status Date / Time No Known Allergies Allergy Verified 04/20/18 13:45 Home Medications: Ambulatory Orders clonazePAM [Klonopin -] 0.5 mg PO PRN 04/20/18 Review of Systems - Review of Systems Able to Perform ROS?: Yes Comments:: 04/20/18 14:46 ADULT ROS GENERAL/CONSTITUTIONAL: No fever or chills. No weakness. HEAD, EYES, EARS, NOSE AND THROAT: No change in vision. No ear pain or discharge. No sore throat. CARDIOVASCULAR: (+) Chest pain. No shortness of breath. RESPIRATORY: No cough, wheezing, or hemoptysis. GASTROINTESTINAL: No nausea, vomiting, diarrhea or constipation. GENITOURINARY: No dysuria, frequency, or change in urination. MUSCULOSKELETAL: No joint or muscle swelling or pain. No neck or back pain. SKIN: No rash NEUROLOGIC: No headache, vertigo, loss of consciousness, or change in strength/ sensation. ENDOCRINE: No increased thirst. No abnormal weight change. HEMATOLOGIC/LYMPHATIC: No anemia, easy bleeding, or history of blood clots. ALLERGIC/IMMUNOLOGIC: No hives or skin allergy. <Izabella Vargas - Last Filed: 04/20/18 15:18> *Physical Exam - Vital Signs Last Vital Signs Temp Pulse Resp BP Pulse Ox 98.0 F 66 18 116/83 100 04/20/18 13:46 04/20/18 13:46 04/20/18 14:25 04/20/18 13:46 04/20/18 13:46 - Physical Exam Comments: 04/20/18 15:18 ADULT PE GENERAL: The patient is in no acute distress. HEAD: Normal with no signs of trauma. EYES: PERRLA, EOMI, sclera anicteric, conjunctiva clear. ENT: Ears normal, nares patent, oropharynx clear without exudates. Moist mucous membranes. NECK: Normal range of motion, supple without lymphadenopathy, JVD, or masses. LUNGS: Breath sounds equal, clear to auscultation bilaterally. No wheezes, and no crackles. HEART: (+) Chest pain worsened with palpation. Regular rate and rhythm, normal S1 and S2 without murmur, rub or gallop. ABDOMEN: Soft, nontender, normoactive bowel sounds. No guarding, no rebound. No masses palpable. EXTREMITIES: Normal range of motion, no edema. No clubbing or cyanosis. No erythema, or tenderness. NEUROLOGICAL: Cranial nerves II through XII grossly intact. Normal speech. No focal neurological deficits. MUSCULOSKELETAL: Back non-tender to palpation, no CVA tenderness SKIN: Warm, Dry, normal turgor, no rashes or lesions noted. <AliciaIzabella - Last Filed: 04/20/18 15:18> Heart Score/ECG Review - History History: Moderately suspicious - Electrocardiogram EKG: Normal - Age Age: </= 45 - Risk Factors Based on the list above the patient has:: 1-2 risk factors - Troponin Troponin: </= normal limit - Score Heart Score - Total: 2 <AntoineRoyceSofya - Last Filed: 04/22/18 08:50> ED Treatment Course - LABORATORY CBC & Chemistry Diagram: 04/20/18 14:10 04/20/18 14:10 <AliciaIzabella - Last Filed: 04/20/18 15:18> - LABORATORY CBC & Chemistry Diagram: 04/20/18 14:10 04/20/18 14:10 <Sofya Schultz - Last Filed: 04/22/18 08:50> Medical Decision Making - Medical Decision Making 04/20/18 14:04 47-year-old male presented to emergency department with a complaint of chest pain. Patient has previous he had these symptoms a possibly 2 years ago. Patient was admitted at that time and then discharged home. He has not followed up with cardiology. Patient states over the past few months she's had a recurrence of these symptoms. There is no exertional dyspnea. Symptoms started several hours prior to arrival in the ER. On my examination his chest pain is worsened/reproducible with chest palpation. He is low risk [place]-no known cancer, no recent travel, no recent immobilization , no recent surgery. His PERC score is negative. Differential includes cardiac ischemia, pe, asthma exacerbation, pneumonia, pneumothorax, pleural effusion, costochondritis, pericarditis, GERD. Will do: Labs, EKG Twelve-lead EKG was performed and reviewed by me. There is normal sinus rhythm with a normal rate. The axis is normal. The intervals are normal. There are no ST or T wave abnormalities. Impression: Normal twelve-lead EKG 04/20/18 14:33 HEART score =2 ECHO December 2015 = Mild mitral regurgitation, mild aortic regurgitation 04/20/18 16:06 04/20/18 16:08 Laboratory Tests 04/20/18 04/20/18 04/20/18 14:10 14:10 14:10 WBC 5.6 Hgb 15.3 Hct 44.6 Plt Count 239 D INR 1.10 H BUN 10 Creatinine 0.9 Creatine Kinase 148 Troponin I < 0.02 will do Repeat Trop in 3 hours Pt signed out to Dr Tsai Pending repeat trop and re assessment <Sofya Schultz - Last Filed: 04/22/18 08:50> *DC/Admit/Observation/Transfer - Attestations Scribe Attestion: 04/20/18 15:18 Documentation prepared by Izabella Vargas, acting as medical social worker for Sofya Schultz MD. <Izabella Vargas - Last Filed: 04/20/18 15:18> <Sofya Schultz - Last Filed: 04/22/18 08:50> Diagnosis at time of Disposition: Chest pain - Discharge Dispostion Disposition: HOME Condition at time of disposition: Stable - Referrals Referrals: Melanie De Leon MD [Primary Care Provider] - - Patient Instructions Printed Discharge Instructions: DI for Atypical Chest Pain Additional Instructions: please follow up with your doctor Print Language: FRISIAN
[2018-04-20 14:03] VITALS: BMI 28.9
[2018-04-20 14:34] LABS: BASO % 0.6 % (0-2.0); EOS % 4.7 % (0-4.5); HEMATOCRIT 44.6 % (35.4-49); HEMOGLOBIN 15.3 GM/dL (11.7-16.9); MCH 29.9 pg (25.7-33.7); MCHC 34.4 g/dl (32.0-35.9); MEAN CELL VOLUME 86.7 fl (80-96); MEAN PLT VOLUME 8.6 fl (7.5-11.1); MONO % 7.3 % (3.8-10.2); NEUT % 66.4 % (42.8-82.8); PLATELET COUNT 239 K/MM3 (134-434); RBC 5.14 M/mm3 (4.00-5.60); RDW 13.8 % (11.9-15.9); WHITE BLOOD COUNT 5.6 K/mm3 (4.0-10.0)
[2018-04-20] MEDS ORDERED: FAMOTIDINE 20 MG/50 ML IVPB 20 MG/50 ML MG IVPB ONE ×2 (14:45→15:55)
[2018-04-20 14:50] LABS: INR 1.1 (0.83-1.09); PROTHROMBIN TIME (PATIENT) 12.4 SEC (9.7-13.0)
[2018-04-20 15:14] LABS: ALBUMIN 3.8 g/dl (3.4-5.0); ALK PHOS 122 U/L (45-117); ANION GAP 5 MMOL/L (8-16); BILIRUBIN,TOTAL 0.5 mg/dL (0.2-1); BLOOD UREA NITROGEN 10 mg/dL (7-18); CALCIUM 8.5 mg/dL (8.5-10.1); CHLORIDE 104 mmol/L (98-107); CO2 26 mmol/L (21-32); CREATININE 0.9 mg/dL (0.55-1.3); GLUCOSE,RANDOM 115 mg/dL (74-106); MAGNESIUM 2.1 mg/dL (1.8-2.4); N-TERMINAL BNP 8.5 pg/ml (5-125); POTASSIUM 3.9 mmol/L (3.5-5.1); SGOT/AST 22 U/L (15-37); SGPT/ALT 40 U/L (13-61); SODIUM 136 mmol/L (136-145); TOT PROT 7.6 g/dl (6.4-8.2)
--- NOTE | 2018-04-20 18:27 | PDOC ---
*Physical Exam - Vital Signs Last Vital Signs Temp Pulse Resp BP Pulse Ox 98.0 F 66 18 116/83 100 04/20/18 13:46 04/20/18 13:46 04/20/18 14:25 04/20/18 13:46 04/20/18 13:46 ED Treatment Course - LABORATORY CBC & Chemistry Diagram: 04/20/18 14:10 04/20/18 14:10 - ADDITIONAL ORDERS Additional order review: Laboratory Results 04/20/18 04/20/18 04/20/18 17:30 14:10 14:10 PT with INR 12.40 INR 1.10 H Sodium 136 Potassium 3.9 Chloride 104 Carbon Dioxide 26 Anion Gap 5 L BUN 10 Creatinine 0.9 Creat Clearance w eGFR > 60 Random Glucose 115 H Calcium 8.5 Magnesium 2.1 Total Bilirubin 0.5 AST 22 ALT 40 Alkaline Phosphatase 122 H Creatine Kinase 141 148 Troponin I < 0.02 < 0.02 B-Natriuretic Peptide 8.5 Total Protein 7.6 Albumin 3.8 04/20/18 14:10 RBC 5.14 MCV 86.7 MCHC 34.4 RDW 13.8 MPV 8.6 Neutrophils % 66.4 D Lymphocytes % 21.0 D Monocytes % 7.3 Eosinophils % 4.7 H D Basophils % 0.6 - Medications Given in the ED: ED Medications Discontinued Medications Generic Name Dose Route Start Last Admin Trade Name Rufusq PRN Reason Stop Dose Admin Aspirin 162 mg 04/20/18 13:59 04/20/18 14:44 Asa - PO 04/20/18 14:00 Not Given ONCE ONE Famotidine/Sodium Chloride 20 mg in 50 mls @ 100 mls/hr 04/20/18 14:45 15:45 Pepcid 20 Mg Premixed Ivpb - IVPB 04/20/18 15:14 100 mls/hr ONCE ONE Administration Medical Decision Making - Medical Decision Making 04/20/18 18:26 2 neg troponin *DC/Admit/Observation/Transfer Diagnosis at time of Disposition: Chest pain Qualifiers: Chest pain type: unspecified Qualified Code(s): R07.9 - Chest pain, unspecified - Discharge Dispostion Disposition: HOME Condition at time of disposition: Stable - Referrals Referrals: Melanie De Leon MD [Primary Care Provider] - - Patient Instructions Printed Discharge Instructions: DI for Atypical Chest Pain Additional Instructions: please follow up with your doctor Print Language: TAJIK - Post Discharge Activity
[2018-04-20 18:39] VITALS: BP 108/72; PULSE 78; TEMP 98.2
--- NOTE | 2018-04-21 10:58 | EKG ---
Test Reason : Blood Pressure : / mmHG Vent. Rate : 066 BPM Atrial Rate : 066 BPM P-R Int : 152 ms QRS Dur : 084 ms QT Int : 368 ms P-R-T Axes : 041 018 024 degrees QTc Int : 385 ms NORMAL SINUS RHYTHM POSSIBLE LEFT ATRIAL ENLARGEMENT BORDERLINE ECG Confirmed by MD CASSANDRA, MAURO ([id number]) on 04/21/2018 10:58:20 AM Referred By: Confirmed By:MAURO TRUJILLO MD
== END 2018-04-20 18:38 | disposition home or self-care (01) ==
LOC: JER 13:38
PROC: 3E033GC Introduction of Other Therapeutic Substance into Peripheral Vein, Percutaneous Approach (ICD-10-PCS; principal; 2018-04-20)
DX: R07.9 Chest pain, unspecified (principal); F41.9 Anxiety disorder, unspecified; J45.909 Unspecified asthma, uncomplicated
CPT/HCPCS: 36415; 71045-TC-FY; 80053; 82550; 83735; 83880; 84484; 85025; 85610; 93005; 93010; 99285-25

== ENCOUNTER 2018-04-25 13:31 | Emergency (ER) | payer OTHER ==
[2018-04-25 13:34] VITALS: BMI 28.9
[2018-04-25] MEDS ORDERED: ASPIRIN 81 MG CHEWABLE TABLETS PO ONE (13:41)
[2018-04-25] MEDS ORDERED: NITROGLYCERIN SUBLINGUAL 1/150 0.4 MG TAB SL ONE (13:57)
--- NOTE | 2018-04-25 13:57 | PDOC ---
History of Present Illness - General History Source: Patient Exam Limitations: No Limitations <Misti Urbina - Last Filed: 04/25/18 14:43> <Susana Gomez - Last Filed: 04/26/18 19:37> - General History Source: Patient Exam Limitations: No Limitations <Sofya Schultz - Last Filed: 04/27/18 08:35> - General Chief Complaint: Chest Pain Stated Complaint: CHEST PAIN Time Seen by Provider: 04/25/18 13:41 - History of Present Illness Initial Comments: 04/25/18 14:44 The patient is a 47 year old male with a significant PMH of asthma and anxiety who presents to the emergency department with chest pain. The patient was recently seen in the ED for similar complaint 5 days ago. The patient describes his chest pain as left sided, intermittent ,pressure like feeling and a 7/10 in severity. he states that his chest pain is worsened with deep breath and moves to the center of his chest. He reports some associated difficulty breathing second to his chest pain. The patient reports that when this happened in the past he took his anti anxiety medication and felt better. The patient denies any significant family history. He denies any alcohol or drug use. He denies an smoking. The patient denies any other sympotoms. He denies any fever, chills, nausea, vomiting, diarrhea, constipation or urinary symptoms. He denies any headache or dizziness. The patient denies any other complaints. PCP: Dr. De Leon Church Administrator: Dr Butler (Misti Urbina) Past History <Misti Urbina - Last Filed: 04/25/18 14:43> <Susana Gomez - Last Filed: 04/26/18 19:37> - Past Medical History Asthma: Yes COPD: No Psychiatric Problems: Yes (anxiety) - Immunization History Immunization Up to Date: Yes - Suicide/Smoking/Psychosocial Hx Smoking History: Never smoked Have you smoked in the past 12 months: No Number of Cigarettes Smoked Daily: 0 Hx Alcohol Use: No Drug/Substance Use Hx: No Substance Use Type: None Hx Substance Use Treatment: No <Sofya Schultz - Last Filed: 04/27/18 08:35> - Past Medical History Allergies/Adverse Reactions: Allergies Allergy/AdvReac Type Severity Reaction Status Date / Time No Known Allergies Allergy Verified 04/25/18 13:33 Home Medications: Ambulatory Orders clonazePAM [Klonopin -] 0.25 mg PO PRN 04/20/18 Review of Systems - Review of Systems Able to Perform ROS?: Yes <Misti Urbina - Last Filed: 04/25/18 14:43> <Susana Gomez - Last Filed: 04/26/18 19:37> <Sofya Schultz - Last Filed: 04/27/18 08:35> - Review of Systems Comments:: 04/25/18 14:44 GENERAL/CONSTITUTIONAL: No fever or chills. No weakness. HEAD, EYES, EARS, NOSE AND THROAT: No change in vision. No ear pain or discharge. No sore throat. CARDIOVASCULAR: (+)chest pain, No r shortness of breath. RESPIRATORY: No cough, wheezing, or hemoptysis. GASTROINTESTINAL: No nausea, vomiting, diarrhea or constipation. GENITOURINARY: No dysuria, frequency, or change in urination. MUSCULOSKELETAL: No joint or muscle swelling or pain. No neck or back pain. SKIN: No rash NEUROLOGIC: No headache, vertigo, loss of consciousness, or change in strength/ sensation. ENDOCRINE: No increased thirst. No abnormal weight change. HEMATOLOGIC/LYMPHATIC: No anemia, easy bleeding, or history of blood clots. ALLERGIC/IMMUNOLOGIC: No hives or skin allergy. (Misti Urbina) *Physical Exam <Misti Urbina - Last Filed: 04/25/18 14:43> <Susana Gomez - Last Filed: 04/26/18 19:37> <Sofya Schultz - Last Filed: 04/27/18 08:35> - Vital Signs Last Vital Signs Temp Pulse Resp BP Pulse Ox 98.1 F 56 L 16 119/75 97 04/26/18 00:23 04/26/18 00:23 04/26/18 00:23 04/26/18 00:23 04/26/18 00:23 - Physical Exam Comments: 04/25/18 14:44 GENERAL: The patient is in no acute distress. HEAD: Normal with no signs of trauma. EYES: PERRLA, EOMI, sclera anicteric, conjunctiva clear. ENT: Ears normal, nares patent, oropharynx clear without exudates. Moist mucous membranes. NECK: Normal range of motion, supple without lymphadenopathy, JVD, or masses. LUNGS: Breath sounds equal, clear to auscultation bilaterally. No wheezes, and no crackles. HEART:Regular rate and rhythm, normal S1 and S2 without murmur, rub or gallop. ABDOMEN: Soft, nontender, normoactive bowel sounds. No guarding, no rebound. No masses palpable. EXTREMITIES: Normal range of motion, no edema. No clubbing or cyanosis. No erythema, or tenderness. NEUROLOGICAL: Cranial nerves II through XII grossly intact. Normal speech. No focal neurological deficits. MUSCULOSKELETAL: Back non-tender to palpation, no CVA tenderness SKIN: Warm, Dry, normal turgor, no rashes or lesions noted. (Misti Urbina) Heart Score/ECG Review - History History: Moderately suspicious - Electrocardiogram EKG: Normal - Age Age: 45-65 - Risk Factors Based on the list above the patient has:: No risk factors known - Troponin Troponin: </= normal limit - Score Heart Score - Total: 2 <Sofya Schultz - Last Filed: 04/27/18 08:35> ED Treatment Course - LABORATORY CBC & Chemistry Diagram: 04/25/18 14:12 04/25/18 14:12 <Misti Urbina - Last Filed: 04/25/18 14:43> - LABORATORY CBC & Chemistry Diagram: 04/25/18 14:12 04/25/18 14:12 <Susana Gomez - Last Filed: 04/26/18 19:37> - LABORATORY CBC & Chemistry Diagram: 04/25/18 14:12 04/25/18 14:12 <Sofya Schultz - Last Filed: 04/27/18 08:35> - ADDITIONAL ORDERS Additional order review: 04/25/18 14:12 RBC 5.11 MCV 87.8 MCHC 33.5 RDW 13.8 MPV 8.5 Neutrophils % 62.5 Lymphocytes % 27.5 D Monocytes % 6.0 Eosinophils % 3.3 Basophils % 0.7 - RADIOLOGY Radiology Studies Ordered: Category Date Time Status CHEST X-RAY PORTABLE* [RAD] Stat Radiology 04/25/18 13:41 Completed - Medications Given in the ED: ED Medications Discontinued Medications Generic Name Dose Route Start Last Admin Trade Name Freq PRN Reason Stop Dose Admin Aspirin 162 mg 04/25/18 13:41 04/25/18 14:15 Asa - PO 04/25/18 13:42 162 mg ONCE ONE Administration Clonazepam 0.25 mg 04/25/18 17:06 04/25/18 17:18 Klonopin - PO 04/25/18 17:07 0.25 mg ONCE ONE Administration Nitroglycerin 0.4 mg 04/25/18 13:57 04/25/18 14:15 Nitrostat - SL 04/25/18 13:58 0.4 mg ONCE ONE Administration Medical Decision Making <Misti Urbina - Last Filed: 04/25/18 14:43> <Susana Gomez - Last Filed: 04/26/18 19:37> <Sofya Schultz - Last Filed: 04/27/18 08:35> - Medical Decision Making 04/26/18 19:37 Pt was improved; labs normal; discharged in the AM. (Susana Gomez) 04/25/18 14:07 Twelve-lead EKG was performed and reviewed by me. There is normal sinus rhythm with a normal rate of 59 bpm. The axis is normal. The intervals are normal. There are no ST or T wave abnormalities. 04/25/18 14:08 47-year-old male returns to the emergency department with a complaint of chest pain. Patient has previous seen 4 days ago - trop neg x 2 Patient was admitted at that time and then discharged home. Pt had been seen by Dr Vang in the past where work up was negative pending stress test (he missed his appointment) Patient states over the past few months she's had a recurrence of these symptoms. There is no exertional dyspnea. Symptoms started several hours prior to arrival in the ER. He is low risk [place]-no known cancer, no recent travel, no recent immobilization , no recent surgery. His PERC score is negative. Differential includes cardiac ischemia, pe, asthma exacerbation, pneumonia, pneumothorax, pleural effusion, costochondritis, pericarditis, GERD. Impression: Normal twelve-lead EKG 04/20/18 14:33 HEART score =2 Will repeat labs Will consult Cardiology Will place on observation 04/25/18 17:12 Laboratory Tests 04/25/18 14:12 Creatine Kinase 415 H Creatine Kinase Index 0.4 CK-MB (CK-2) 2.0 Troponin I < 0.02 04/25/18 17:[address] Vang Given recurrent symptoms, negative troponins, pt can be seen in the office on Friday for outpatient stress testing Call placed to hospitalist for possible ED obs would like to repeat troponin and EKG ReAssess, Repeat troponin and EKG Pt signed out to Dr Gomez (Sofya Schultz) *DC/Admit/Observation/Transfer <Misti Urbina - Last Filed: 04/25/18 14:43> - Discharge Dispostion Decision to Admit order: No <Susana Gomez - Last Filed: 04/26/18 19:37> <Sofya Schultz - Last Filed: 04/27/18 08:35> Diagnosis at time of Disposition: Atypical chest pain - Discharge Dispostion Disposition: HOME Condition at time of disposition: Improved - Referrals Referrals: Melanie De Leon MD [Primary Care Provider] - - Patient Instructions Printed Discharge Instructions: DI for Atypical Chest Pain - Post Discharge Activity - Attestations Scribe Attestion: 04/25/18 14:45 Documentation prepared by Misti Urbina, acting as medical review coordinator for Sofya Schultz MD. (Misti Urbina)
[2018-04-25] MEDS ORDERED: ASPIRIN 81 MG CHEWABLE TABLETS ONE (14:15)
[2018-04-25] MEDS ORDERED: NITROGLYCERIN SUBLINGUAL 1/150 0.4 MG TAB ONE (14:16)
[2018-04-25 14:28] LABS: BASO % 0.7 % (0-2.0); EOS % 3.3 % (0-4.5); HEMATOCRIT 44.9 % (35.4-49); LYMPH % 27.5 % (8-40); MCH 29.4 pg (25.7-33.7); MCHC 33.5 g/dl (32.0-35.9); MEAN CELL VOLUME 87.8 fl (80-96); MEAN PLT VOLUME 8.5 fl (7.5-11.1); NEUT % 62.5 % (42.8-82.8); PLATELET COUNT 259 K/MM3 (134-434); RBC 5.11 M/mm3 (4.00-5.60); RDW 13.8 % (11.9-15.9); WHITE BLOOD COUNT 5.2 K/mm3 (4.0-10.0)
[2018-04-25 14:41] LABS: INR 1.01 (0.83-1.09); PROTHROMBIN TIME (PATIENT) 11.9 SEC (9.7-13.0)
[2018-04-25 14:45] LABS: ALBUMIN 4.2 g/dl (3.4-5.0); ALK PHOS 111 U/L (45-117); ANION GAP 9 MMOL/L (8-16); BILIRUBIN,TOTAL 0.5 mg/dL (0.2-1); BLOOD UREA NITROGEN 10 mg/dL (7-18); CHLORIDE 107 mmol/L (98-107); CO2 25 mmol/L (21-32); CREATININE 0.9 mg/dL (0.55-1.3); GLUCOSE,RANDOM 93 mg/dL (74-106); MAGNESIUM 2.4 mg/dL (1.8-2.4); N-TERMINAL BNP 8.7 pg/ml (5-125); POTASSIUM 4.3 mmol/L (3.5-5.1); SGOT/AST 19 U/L (15-37); SGPT/ALT 29 U/L (13-61); SODIUM 141 mmol/L (136-145); TOT PROT 7.9 g/dl (6.4-8.2)
[2018-04-25] MEDS ORDERED: clonazePAM 0.5 MG TABLET PO ONE (17:06)
[2018-04-25] MEDS ORDERED: clonazePAM 0.5 MG TABLET ONE (17:15)
[2018-04-25 21:03] VITALS: TEMP 98.1
[2018-04-26 00:24] VITALS: BP 119/75; PULSE 56
--- NOTE | 2018-04-27 06:29 | EKG ---
Test Reason : Blood Pressure : / mmHG Vent. Rate : 059 BPM Atrial Rate : 059 BPM P-R Int : 150 ms QRS Dur : 100 ms QT Int : 384 ms P-R-T Axes : 020 019 021 degrees QTc Int : 380 ms SINUS BRADYCARDIA OTHERWISE NORMAL ECG WHEN COMPARED WITH ECG OF 20-APR-2018 14:01, NO SIGNIFICANT CHANGE WAS FOUND Confirmed by DEJON DOWLING MD ([id number]) on 04/27/2018 6:29:39 AM Referred By: Confirmed By:DEJON DOWLING MD
== END 2018-04-26 00:34 | disposition home or self-care (01) ==
LOC: JER 13:31
DX: R07.9 Chest pain, unspecified (principal); J45.909 Unspecified asthma, uncomplicated; F41.9 Anxiety disorder, unspecified
CPT/HCPCS: 36415; 71045-TC-FY; 80053; 82550; 82553; 83735; 83880; 84484; 85025; 85610; 93005; 93010; 99285-25

== ENCOUNTER 2018-06-19 22:32 | Emergency (ER) | payer OTHER ==
[2018-06-19 22:47] VITALS: TEMP 98.4; BMI 28.8
--- NOTE | 2018-06-19 23:56 | PDOC ---
History of Present Illness - General Chief Complaint: Chest Pain Stated Complaint: PAIN - History of Present Illness Initial Comments: 47 year old male with PMH of asthma, anxiety, and frequent visits for chest pain presenting with acute on chronic chest pain worse in the last three days. He describes the pain as a pressure in the upper left portion of his chest, non radiating, non-exertional, and non-pleuritic. His pain is worse when he does not take his clonazepam and he begins to have anxiety attacks. He describes an episode of particularly bad chest painathat came on yesterday after he had a panic attack that consisted of sweating and shaking. He is currently almost out of his clonazepam. He is supposed to have a stress test with Dr. Vang but he had an insurance hiccup so the appointment is pending. He denies fevers, chills , nausea, vomiting, diarrhea, or other symptoms. 06/20/18 00:03 Past History - Past Medical History Allergies/Adverse Reactions: Allergies Allergy/AdvReac Type Severity Reaction Status Date / Time No Known Allergies Allergy Verified 06/19/18 23:32 Home Medications: Ambulatory Orders clonazePAM [Klonopin -] 0.25 mg PO PRN 04/20/18 Asthma: Yes COPD: No Psychiatric Problems: Yes (anxiety) Other medical history: pneumonia - Surgical History Abdominal Surgery: No Appendectomy: No Cardiac Surgery: No - Immunization History Immunization Up to Date: Yes - Suicide/Smoking/Psychosocial Hx Smoking History: Never smoked Have you smoked in the past 12 months: No Number of Cigarettes Smoked Daily: 0 Information on smoking cessation initiated: No Hx Alcohol Use: No Drug/Substance Use Hx: No Substance Use Type: None Hx Substance Use Treatment: No Review of Systems - Review of Systems Constitutional: No: Chills, Diaphoresis, Fever, Loss of Appetite HEENTM: No: Eye Pain, Blurred Vision, Tearing Respiratory: No: Cough, Shortness of Breath Cardiac (ROS): Yes: Chest Pain. No: Irregular Heart Rate, Chest Tightness ABD/GI: No: Diarrhea, Nausea, Vomiting : No: Dysuria, Discharge, Frequency Integumentary: No: Lesions, Lumps, Pallor Neurological: No: Headache, Numbness, Tingling Psychiatric: Yes: Anxiety. No: Stressors, Sleep Pattern Change, Change in Appetite Endocrine: No: Intolerance to Heat, Increased Hunger, Increased Thirst Hematologic/Lymphatic: No: Anemia, Blood Clots, Easy Bleeding *Physical Exam - Vital Signs Last Vital Signs Temp Pulse Resp BP Pulse Ox 98.4 F 72 20 127/82 100 06/19/18 22:44 06/19/18 22:44 06/19/18 22:44 06/19/18 22:44 06/19/18 22:44 - Physical Exam General Appearance: Yes: Nourished, Appropriately Dressed. No: Apparent Distress HEENT: positive: EOMI, JOSSELIN, Normal ENT Inspection, Normal Voice Neck: positive: Trachea midline, Normal Thyroid, Supple. negative: Tender, Rigid Respiratory/Chest: positive: Lungs Clear, Normal Breath Sounds. negative: Chest Tender, Respiratory Distress, Accessory Muscle Use Cardiovascular: positive: Regular Rhythm, Regular Rate Gastrointestinal/Abdominal: positive: Normal Bowel Sounds, Flat, Soft. negative : Tender Lymphatic: negative: Adenopathy, Tenderness Musculoskeletal: positive: Normal Inspection. negative: Decreased Range of Motion Extremity: positive: Normal Capillary Refill, Normal Inspection, Normal Range of Motion. negative: Tender Integumentary: positive: Normal Color, Dry, Warm Neurologic: positive: horticultural specialty grower field II-XII NML intact, Fully Oriented, Alert, Normal Mood/ Affect, Normal Response, Motor Strength 5/5 ED Treatment Course - LABORATORY CBC & Chemistry Diagram: 06/20/18 00:16 06/20/18 00:16 Medical Decision Making - Medical Decision Making 47 year old male with PMH of anxiety and frequent presentations for chest pain presenting with chest pain unconcerning for cardiac event. troponin and EKG WNL. Rate 69, UT 158, QRS 84, [id number], axis normal with t-wave in version in III. TSH also slightly elevated to 5.15, free t4 pending. Patient appears to be abusing clonazepam because PDMP demonstrating refills from various providers but no recent active prescriptions form his PCP. PAtient needs clonazepam detox. Will DC [facility] to [facility] in the AM. 06/20/18 02:28 *DC/Admit/Observation/Transfer Diagnosis at time of Disposition: Mild clonazepam abuse - Discharge Dispostion Disposition: HOME Condition at time of disposition: Stable Decision to Admit order: No - Referrals - Patient Instructions Printed Discharge Instructions: DI for Anxiety -- Adult Additional Instructions: Please follow the instructions at the detox center. Please find a primary care physician at the [facility] on this sheet when you leave rehab. Please return to the ED if you have any new or worsening symptoms. - Post Discharge Activity
[2018-06-20] MEDS ORDERED: ACETAMINOPHEN 500 MG TABLET (FP) PO ONE (00:03)
[2018-06-20] MEDS ORDERED: ACETAMINOPHEN 325 MG TABLET (FP) ONE (00:08)
[2018-06-20 00:21] LABS: BASO % 0.9 % (0-2.0); EOS % 4.6 % (0-4.5); HEMATOCRIT 41.4 % (35.4-49); LYMPH % 24.3 % (8-40); MCH 29.7 pg (25.7-33.7); MCHC 33.9 g/dl (32.0-35.9); MEAN CELL VOLUME 87.5 fl (80-96); NEUT % 64.2 % (42.8-82.8); PLATELET COUNT 271 K/MM3 (134-434); RBC 4.73 M/mm3 (4.00-5.60); RDW 13.7 % (11.9-15.9); WHITE BLOOD COUNT 9.6 K/mm3 (4.0-10.0)
--- NOTE | 2018-06-20 00:40 | PDOC ---
Attending Attestation - Resident Resident Name: Smith Montague - ED Attending Attestation I have performed the following: I have examined & evaluated the patient, The case was reviewed & discussed with the resident, I agree w/resident's findings & plan - HPI HPI: 06/20/18 19:50 Pt comes with CP and anxiety and he is asking for some clonazepam. - Physicial Exam PE: 06/20/18 19:51 Agree with resident exam. - Medical Decision Making 06/20/18 01:24 Rx Written Rx Dispensed Drug Quantity Days Supply Prescriber Name 06/08/2018 06/15/2018 clonazepam 0.25 mg odt 7 14 Rossy Alfaro 05/30/2018 06/02/2018 clonazepam 0.5 mg tablet 7 7 Nik Cazares 04/27/2018 04/27/2018 clonazepam 0.5 mg tablet 30 30 Melanie De Anda () 04/13/2018 04/13/2018 clonazepam 0.5 mg tablet 7 30 Melanie De Anda () Patient Name: Moe Khan Date: 1970 Address: [address] [place] [address] Sex: Male Rx Written Rx Dispensed Drug Quantity Days Supply Prescriber Name 03/12/2018 03/12/2018 clonazepam 0.5 mg tablet 30 30 Melanie De Anda) 02/09/2018 02/09/2018 clonazepam 0.5 mg tablet 30 30 Melanie De Anda) 01/08/2018 01/08/2018 clonazepam 0.5 mg tablet 30 30 Melanie De Anda) 12/05/2017 12/08/2017 clonazepam 0.5 mg tablet 30 30 Melanie De Anda () Patient Name: Moe Khan Date: 1970 Address: [address] [place] [address] Sex: Male Rx Written Rx Dispensed Drug Quantity Days Supply Prescriber Name 11/13/2017 11/13/2017 clonazepam 0.5 mg tablet 30 30 Melanie De Anda) 10/02/2017 10/06/2017 clonazepam 0.5 mg tablet 30 30 Melanie De Anda) 08/18/2017 08/20/2017 clonazepam 0.5 mg tablet 30 30 Melanie De Anda) 07/07/2017 07/09/2017 clonazepam 0.5 mg tablet 30 30 Melanie De Anda) 06/20/18 19:51 I tried to get pt accepted to [facility], but they are refusing because his utox shows no benzos. So they ask that she shows up in the AM for Rehab, which is a one month admission. Pt has been discharged and allowed to stay in the ER until rehab opens. Heart Score/ECG Review - ECG Intrepretation Rhythm: Regular Rhythm - [place]: Normal - P and MI Prominent R with upright T in V1 (true posterior VA): No Delta Wave(s) Present: No WPW: No - QRS Poor R Wave Progression: No Q Wave Present: No - ST and T Early Repolarization: No Non Specific ST-T Wave changes: No - ECG Impressions Normal ECG: Yes Non-specific ST Elevation: No Ischemic Changes: No
[2018-06-20 00:56] LABS: ALBUMIN 3.6 g/dl (3.4-5.0); ALK PHOS 100 U/L (45-117); ANION GAP 7 MMOL/L (8-16); BILIRUBIN,TOTAL 0.4 mg/dL (0.2-1); BLOOD UREA NITROGEN 18 mg/dL (7-18); CALCIUM 8.2 mg/dL (8.5-10.1); CHLORIDE 106 mmol/L (98-107); CO2 26 mmol/L (21-32); CREATININE 0.9 mg/dL (0.55-1.3); GLUCOSE,RANDOM 95 mg/dL (74-106); SGOT/AST 21 U/L (15-37); SGPT/ALT 26 U/L (13-61); SODIUM 138 mmol/L (136-145); TOT PROT 7.2 g/dl (6.4-8.2)
[2018-06-20 01:58] LABS: COCAINE, UR NEGATIVE ng/ml (CUTOFF=300); METHADONE, UR NEGATIVE ng/ml (CUTOFF=300); OPIATES, URI NEGATIVE ng/ml (CUTOFF=300); PHENCYCLIDINE,URINE NEGATIVE ng/ml (CUTOFF=25); URINE AMPHETAMINES NEGATIVE ng/ml (CUTOFF=500); URINE BARBITURATES NEGATIVE ng/ml (CUTOFF=200); URINE BENZODIAZEPINES NEGATIVE ng/ml (CUTOFF=200)
[2018-06-20 02:29] VITALS: BP 109/72; PULSE 65
--- NOTE | 2018-06-20 11:55 | EKG ---
Test Reason : Blood Pressure : / mmHG Vent. Rate : 069 BPM Atrial Rate : 069 BPM P-R Int : 158 ms QRS Dur : 084 ms QT Int : 370 ms P-R-T Axes : 047 028 029 degrees QTc Int : 396 ms NORMAL SINUS RHYTHM NORMAL ECG WHEN COMPARED WITH ECG OF 25-APR-2018 13:30, NO SIGNIFICANT CHANGE WAS FOUND Confirmed by FARZAD DE LA CRUZ MD ([id number]) on 06/20/2018 11:55:20 AM Referred By: Confirmed By:FARZAD DE LA CRUZ MD
== END 2018-06-20 03:00 | disposition home or self-care (01) ==
LOC: JER 22:32
DX: F13.10 Sedative, hypnotic or anxiolytic abuse, uncomplicated (principal); F41.9 Anxiety disorder, unspecified
CPT/HCPCS: 36415; 71045-TC-FY; 80053; 80307; 84439; 84443; 84484; 85025; 93005; 93010; 99284-25

== ENCOUNTER 2018-08-10 19:34 | Emergency (ER) | payer SELFPAY ==
[2018-08-10 20:02] VITALS: BMI 29.2
--- NOTE | 2018-08-10 20:06 | PDOC ---
Rapid Medical Evaluation Medical Evaluation: Allergies Allergy/AdvReac Type Severity Reaction Status Date / Time No Known Allergies Allergy Verified 06/19/18 23:32 08/10/18 19:59 I have performed a brief in-person evaluation of this patient. The patient presents with a chief complaint of:c/o CP x 2 hours, no change with respiration feels may be related to anxiety, has some life stressors now. Seen by cardiology 1 year ago and checked out. 2 years diagnosed with anxiety and takes clonazapam for same. non compliant with Zoloft. sees Primary Dr for Anxiety. Pertinent physical exam findings: well, fidgits I have ordered the following: EKG done/ The patient will proceed to the ED for further evaluation. Discharge Disposition - Diagnosis Atypical chest pain - Referrals Referrals: Melanie De Leon MD [Primary Care Provider] - - Patient Instructions - Post Discharge Activity
--- NOTE | 2018-08-10 21:16 | PDOC ---
History of Present Illness - General Chief Complaint: Chest Pain Stated Complaint: CHEST PAIN Time Seen by Provider: 08/10/18 21:13 History Source: Patient - History of Present Illness Initial Comments: 08/11/18 00:38 47-year-old male complaining of left-sided chest pain 2 hours prior to arrival. 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 Patient reports that he has a history of anxiety and had clonazepam in the past. One year ago had a cardiology workup as per patient it was normal. Patient is noted to have some reproducible chest pain. No recent follow-up with a doctor. Denies nausea, vomiting, diarrhea, diaphoresis, dizziness, radiating chest pain, pleuritic chest pain.Denies recent travel, prolonged sitting Past History - Past Medical History Allergies/Adverse Reactions: Allergies Allergy/AdvReac Type Severity Reaction Status Date / Time No Known Allergies Allergy Verified 06/19/18 23:32 Home Medications: Ambulatory Orders clonazePAM [Klonopin -] 0.25 mg PO PRN 04/20/18 Asthma: Yes COPD: No Psychiatric Problems: Yes (anxiety) - Surgical History Abdominal Surgery: No Appendectomy: No Cardiac Surgery: No - Immunization History Immunization Up to Date: Yes - Suicide/Smoking/Psychosocial Hx Smoking History: Never smoked Have you smoked in the past 12 months: No Number of Cigarettes Smoked Daily: 0 Hx Alcohol Use: No Drug/Substance Use Hx: No Substance Use Type: None Hx Substance Use Treatment: No Review of Systems - Review of Systems Able to Perform ROS?: Yes Is the patient limited [place] proficient: No Constitutional: No: Symptoms Reported, See HPI, Chills, Diaphoresis, Fever, Loss of Appetite, Malaise, Night Sweats, Weakness, Weight Stable, Unintentional Wgt. Loss, Unexplained wgt Loss, Other Cardiac (ROS): Yes: Chest Pain. No: Symptoms Reported, See HPI, Edema, Irregular Heart Rate, Lightheadedness, Palpitations, Syncope, Chest Tightness, Other *Physical Exam - Vital Signs Last Vital Signs Temp Pulse Resp BP Pulse Ox 98.9 F 72 18 117/75 96 08/11/18 01:14 08/11/18 01:14 08/11/18 01:14 08/11/18 01:14 08/11/18 01:14 - Physical Exam General Appearance: Yes: Moderate Distress Respiratory/Chest: positive: Chest Tender, Lungs Clear, Normal Breath Sounds Cardiovascular: positive: Regular Rhythm, Regular Rate, S1, S2 Gastrointestinal/Abdominal: positive: Normal Bowel Sounds, Soft. negative: Tender Extremity: positive: Normal Capillary Refill, Normal Inspection, Normal Range of Motion Integumentary: positive: Normal Color, Dry, Warm Heart Score/ECG Review - History History: Slightly suspicious - Electrocardiogram EKG: Normal - Age Age: 45-65 - Risk Factors Based on the list above the patient has:: No risk factors known - Troponin Troponin: </= normal limit - Score Heart Score - Total: 1 - ECG Intrepretation Rhythm: Regular Rhythm Comment:: 08/11/18 01:41 NSR: 65 bpm Moderate Sedation - Procedure Monitoring Vital Signs: Procedure Monitoring Vital Signs Temperature 98.9 F 08/11/18 01:14 Pulse Rate 72 08/11/18 01:14 Respiratory Rate 18 08/11/18 01:14 Blood Pressure 117/75 08/11/18 01:14 O2 Sat by Pulse Oximetry (%) 96 08/11/18 01:14 ED Treatment Course - LABORATORY CBC & Chemistry Diagram: 08/10/18 21:44 08/10/18 21:44 - ADDITIONAL ORDERS Additional order review: Laboratory Results 08/11/18 08/10/18 00:59 21:44 Sodium 138 Potassium 3.8 Chloride 103 Carbon Dioxide 27 Anion Gap 9 BUN 12 Creatinine 0.9 Creat Clearance w eGFR > 60 Random Glucose 105 Calcium 8.8 Total Bilirubin 0.4 AST 17 ALT 28 Alkaline Phosphatase 125 H Creatine Kinase 144 153 Creatine Kinase Index 0.6 CK-MB (CK-2) < 1.0 Troponin I < 0.02 < 0.02 Total Protein 8.0 Albumin 4.0 08/10/18 21:44 RBC 5.05 MCV 87.2 MCHC 35.6 RDW 14.1 MPV 8.3 Neutrophils % 60.7 Lymphocytes % 26.8 Monocytes % 5.8 Eosinophils % 6.0 H Basophils % 0.7 - RADIOLOGY Radiology Studies Ordered: Category Date Time Status CHEST PA & LAT [RAD] Stat Radiology 08/10/18 21:22 Taken Medical Decision Making - Medical Decision Making 08/11/18 01:09 Chest pain P;' EKG: NSR 65 bpm labs cardiac enzymes wnl. PERC neg troponin x2 pending. 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 likely the its muscle pain You may take some Ibuprofen every 6 hours as needed for pain. - Post Discharge Activity Forms/Work/School Notes: Back to Work
[2018-08-10 22:56] LABS: BASO % 0.7 % (0-2.0); HEMATOCRIT 44.1 % (35.4-49); HEMOGLOBIN 15.7 GM/dL (11.7-16.9); LYMPH % 26.8 % (8-40); MCHC 35.6 g/dl (32.0-35.9); MEAN CELL VOLUME 87.2 fl (80-96); MEAN PLT VOLUME 8.3 fl (7.5-11.1); MONO % 5.8 % (3.8-10.2); NEUT % 60.7 % (42.8-82.8); PLATELET COUNT 267 K/MM3 (134-434); RBC 5.05 M/mm3 (4.00-5.60); RDW 14.1 % (11.9-15.9); WHITE BLOOD COUNT 7.4 K/mm3 (4.0-10.0)
--- NOTE | 2018-08-10 22:58 | PDOC ---
*Physical Exam - Vital Signs Last Vital Signs Temp Pulse Resp BP Pulse Ox 99.2 F 75 20 132/89 96 08/10/18 19:59 08/10/18 19:59 08/10/18 19:59 08/10/18 19:59 08/10/18 19:59 ED Treatment Course - LABORATORY CBC & Chemistry Diagram: 08/10/18 21:44 08/10/18 21:44 - ADDITIONAL ORDERS Additional order review: 08/10/18 21:44 RBC 5.05 MCV 87.2 MCHC 35.6 RDW 14.1 MPV 8.3 Neutrophils % 60.7 Lymphocytes % 26.8 Monocytes % 5.8 Eosinophils % 6.0 H Basophils % 0.7 Medical Decision Making - Medical Decision Making 08/11/18 00:22 47-year-old male with reproducible chest pain There are no clinical indicators of pulmonary embolism EKG is within normal limits Patient seen by the advanced practice provider under my direct supervision. Ancillary testing reviewed as necessary. I agree with plan as outlined by the advanced practice provider. *DC/Admit/Observation/Transfer Diagnosis at time of Disposition: Atypical chest pain - Referrals Referrals: Melanie De Leon MD [Primary Care Provider] - - Patient Instructions - Post Discharge Activity
[2018-08-10 23:01] LABS: ALK PHOS 125 U/L (45-117); ANION GAP 9 MMOL/L (8-16); BILIRUBIN,TOTAL 0.4 mg/dL (0.2-1); BLOOD UREA NITROGEN 12 mg/dL (7-18); CALCIUM 8.8 mg/dL (8.5-10.1); CHLORIDE 103 mmol/L (98-107); CO2 27 mmol/L (21-32); CREATININE 0.9 mg/dL (0.55-1.3); GLUCOSE,RANDOM 105 mg/dL (74-106); POTASSIUM 3.8 mmol/L (3.5-5.1); SGOT/AST 17 U/L (15-37); SGPT/ALT 28 U/L (13-61); SODIUM 138 mmol/L (136-145)
[2018-08-11 01:15] VITALS: BP 117/75; PULSE 72; TEMP 98.9
[2018-08-11] MEDS ORDERED: ASPIRIN 325 MG TABLET PO ONE (02:01)
[2018-08-11] MEDS ORDERED: ASPIRIN COATED 81 MG TABLET.EC PO SCH (10:00)
--- NOTE | 2018-08-11 18:12 | EKG ---
Test Reason : Blood Pressure : / mmHG Vent. Rate : 065 BPM Atrial Rate : 065 BPM P-R Int : 154 ms QRS Dur : 100 ms QT Int : 388 ms P-R-T Axes : 057 034 033 degrees QTc Int : 403 ms NORMAL SINUS RHYTHM NORMAL ECG Confirmed by MD CASSANDRA, MAURO ([id number]) on 08/11/2018 6:11:56 PM Referred By: Confirmed By:MAURO TRUJILLO MD
--- NOTE | 2018-08-11 18:14 | EKG ---
Test Reason : Blood Pressure : / mmHG Vent. Rate : 067 BPM Atrial Rate : 067 BPM P-R Int : 154 ms QRS Dur : 092 ms QT Int : 372 ms P-R-T Axes : 047 026 027 degrees QTc Int : 393 ms NORMAL SINUS RHYTHM NORMAL ECG Confirmed by MD CASSANDRA, MAURO ([id number]) on 08/11/2018 6:13:58 PM Referred By: Confirmed By:MAURO TRUJILLO MD
== END 2018-08-11 02:34 | disposition home or self-care (01) ==
LOC: JER 19:34
DX: R07.9 Chest pain, unspecified (principal); F41.9 Anxiety disorder, unspecified
CPT/HCPCS: 36415; 71046-TC-FY; 80053; 82550; 82553; 84484; 85025; 93005; 93010; 99283-25

== ENCOUNTER 2019-06-29 13:44 | Emergency (ER) | payer SELFPAY ==
[2019-06-29 13:56] VITALS: BP 127/77; PULSE 77; TEMP 98.3; BMI 28.3
--- NOTE | 2019-06-29 14:14 | PDOC ---
History of Present Illness - General Chief Complaint: Cold Symptoms Stated Complaint: COLD SYMPTOMS Time Seen by Provider: 06/29/19 14:05 History Source: Patient Exam Limitations: Clinical Condition - History of Present Illness Initial Comments: 06/29/19 14:10 Patient with history of asthma presented with complaint of dry cough, nasal congestion, runny nose, tactile fever and chills since yesterday. Patient reports taking rxid-arm-qhkovml medication called contacted fo cold with minimal improvement. Denies recent travel or sick contact. Denies any other symptoms Is this a multiple visit Asthma Patient?: No Timing/Duration: reports: yesterday Past History - Past Medical History Allergies/Adverse Reactions: Allergies Allergy/AdvReac Type Severity Reaction Status Date / Time No Known Allergies Allergy Verified 06/29/19 13:56 Home Medications: Ambulatory Orders Benzonatate [Tessalon Pearls -] 100 mg PO Q8H PRN #21 capsule 06/29/19 Ipratropium [place] 2 spray NS BID PRN #1 spray 06/29/19 Montelukast Na [Singulair -] 10 mg PO DAILY #7 tablet 06/29/19 Asthma: Yes COPD: No Psychiatric Problems: Yes (anxiety) - Surgical History Abdominal Surgery: No Appendectomy: No Cardiac Surgery: No - Immunization History Immunization Up to Date: Yes - Psycho Social/Smoking Cessation Hx Smoking History: Never smoked Have you smoked in the past 12 months: No Number of Cigarettes Smoked Daily: 0 Hx Alcohol Use: No Drug/Substance Use Hx: No Substance Use Type: None Hx Substance Use Treatment: No Review of Systems - Review of Systems Able to Perform ROS?: Yes Is the patient limited Slovenian proficient: No Constitutional: Yes: Chills, Malaise. No: Fever HEENTM: Yes: Symptoms Reported, See HPI, Nose Congestion. No: Eye Pain, Blurred Vision, Tearing, Recent change in vision, Double Vision, Cataracts, Ear Pain, Ocular Prothesis, Ear Discharge, Nose Pain, Tinnitus, Nose Bleeding, Hearing Loss, Throat Pain, Throat Swelling, Mouth Pain, Dental Problems, Difficulty Swallowing, Mouth Swelling, Other Respiratory: Yes: Symptoms reported, See HPI, Cough. No: Orthopnea, Shortness of Breath, SOB with Exertion, SOB at Rest, Stridor, Wheezing, Productive cough, Hemoptysis, Other Cardiac (ROS): No: Symptoms Reported, See HPI, Chest Pain, Edema, Irregular Heart Rate, Lightheadedness, Palpitations, Syncope, Chest Tightness, Other ABD/GI: No: Symptoms Reported, Nausea, Vomiting : No: Symptoms Reported Musculoskeletal: No: Symptoms Reported, Joint Swelling Integumentary: No: Symptoms Reported, Rash Neurological: No: Symptoms reported All Other Systems: Reviewed and Negative *Physical Exam - Vital Signs Last Vital Signs Temp Pulse Resp BP Pulse Ox 98.3 F 77 18 127/77 99 06/29/19 13:54 06/29/19 13:54 06/29/19 13:54 06/29/19 13:54 06/29/19 13:56 - Physical Exam 06/29/19 14:14 GENERAL: Well developed, well nourished. Awake and alert. No acute distress. HEENT: Normocephalic, atraumatic. PERRLA, EOMI. No conjunctival pallor. Sclera are non-icteric. Moist mucous membranes. Oropharynx is clear. NECK: Supple. Full ROM. CARDIOVASCULAR: Regular rate and rhythm. No murmurs, rubs, or gallops. Distal pulses are 2+ and symmetric. PULMONARY: No evidence of respiratory distress. Lungs clear to auscultation bilaterally. No wheezing, rales or rhonchi. ABDOMINAL: Soft. Non-tender. Non-distended. No rebound or guarding. No organomegaly. Normoactive bowel sounds. MUSCULOSKELETAL Normal range of motion at all joints. SKIN: Warm and dry. Normal capillary refill. No rashes. No cyanosis nEUROLOGICAL: Alert, awake, appropriate. Gait is normal without ataxia. PSYCHIATRIC: Cooperative. Good eye contact. Appropriate mood General Appearance: Yes: Nourished, Appropriately Dressed. No: Apparent Distress Medical Decision Making - Medical Decision Making 06/29/19 14:11 Patient with history of asthma presented with complaint of dry cough, nasal congestion, runny nose, tactile fever and chills since yesterday. Patient reports taking [id number] medication called contact for cold with minimal improvement. Denies recent travel or sick contact. Denies any other symptoms Clinical exam unremarkable with lungs clear to auscultation bilateral and normal cardiac exam. Patient afebrile. Patient symptoms likely viral URI and stable for outpatient management on Tessal Perles For cough, loratadine antihistamine and Atrovent nasal spray with advised to increase fluid intake and follow-up with PCP Discharge - Discharge Information Problems reviewed: Yes Clinical Impression/Diagnosis: URI with cough and congestion Condition: Stable Disposition: HOME - Admission No - Additional Discharge Information Prescriptions: Benzonatate [Tessalon Pearls -] 100 mg PO Q8H PRN #21 capsule PRN Reason: Cough Ipratropium [place] 2 spray NS BID PRN #1 spray PRN Reason: nasal congestion Montelukast Na [Singulair -] 10 mg PO DAILY #7 tablet - Follow up/Referral - Patient Discharge Instructions Patient Printed Discharge Instructions: DI for Viral Upper Respiratory Infection -- Adult Additional Instructions: Your symptoms likely caused by viral infection. Take prescribed medication as prescribed. Increase fluid intake. Follow-up with primary care - Post Discharge Activity
== END 2019-06-29 14:22 | disposition home or self-care (01) ==
LOC: JERFT 13:44
DX: J06.9 Acute upper respiratory infection, unspecified (principal); R05 Cough; R09.89 Other specified symptoms and signs involving the circulatory and respiratory systems; J45.909 Unspecified asthma, uncomplicated
CPT/HCPCS: 99282-25

== ENCOUNTER 2020-08-04 16:01 | Emergency (ER) | payer OTHER ==
[2020-08-04 17:23] VITALS: BP 121/64; PULSE 78; TEMP 98.7; BMI 29.7
== END 2020-08-04 18:42 | disposition home or self-care (01) ==
LOC: JER 16:01
DX: R50.9 Fever, unspecified (principal); R05 Cough; Z11.52 Encounter for screening for COVID-19
CPT/HCPCS: 71046-TC-FY; 99284-25; C9803; U0003

== ENCOUNTER 2020-08-07 02:09 | Emergency (ER) | payer OTHER ==
[2020-08-07 02:17] VITALS: BP 153/82; PULSE 78; TEMP 98.3; BMI 27.4
[2020-08-07] MEDS ORDERED: LIDOCAINE 5% TOPICAL PATCH TP ONE (02:45)
[2020-08-07] MEDS ORDERED: IBUPROFEN 600 MG TABLET (FP) PO ONE ×2 (02:45→03:35)
[2020-08-07] MEDS ORDERED: LIDOCAINE 5% TOPICAL PATCH ONE (03:36)
[2020-08-07] MEDS ORDERED: LIDOCAINE PATCH REMOVAL MC SCH (22:00)
== END 2020-08-07 04:02 | disposition home or self-care (01) ==
LOC: JER 02:09
DX: S29.011A Strain of muscle and tendon of front wall of thorax, initial encounter (principal)
CPT/HCPCS: 36415; 71046-TC-FY; 84484; 93005; 93010; 99285-25

== ENCOUNTER 2020-09-27 00:28 | Emergency (ER) | payer OTHER ==
[2020-09-27 00:42] VITALS: BP 135/72; PULSE 76; TEMP 98.3; BMI 25.7
[2020-09-27] MEDS ORDERED: FLUORESCEIN NA 1 EA STRIP ONE (00:56)
[2020-09-27] MEDS ORDERED: TETRACAINE 0.5% OPHTH SOLN 2 ML BOTTLE ONE (00:56)
[2020-09-27] MEDS ORDERED: ERYTHROMYCIN 0.5% OPHTHALMIC OINTMENT 3.5 GM TUBE ONE (01:00)
[2020-09-27] MEDS ORDERED: TETRACAINE 0.5% HCL 0.6ML DROPPER.BOTTLE OD ONE (01:15)
[2020-09-27] MEDS ORDERED: ERYTHROMYCIN 0.5% OPHTHALMIC OINTMENT 3.5 GM TUBE OD ONE (01:15)
[2020-09-27] MEDS ORDERED: FLUORESCEIN NA 1 EA STRIP OD ONE (01:15)
== END 2020-09-27 01:44 | disposition home or self-care (01) ==
LOC: JER 00:28
DX: H18.823 Corneal disorder due to contact lens, bilateral (principal)
CPT/HCPCS: 99284-25

== ENCOUNTER 2020-10-12 15:21 | Emergency (ER) | payer OTHER ==
[2020-10-12 15:31] VITALS: BP 145/81; PULSE 99; TEMP 98.2; BMI 28.6
[2020-10-12] MEDS ORDERED: ALBUTEROL SO4 0.083% IH SOL 2.5 MG/3 ML VIAL.NEB. NEB PRN (15:42)
[2020-10-12] MEDS ORDERED: predniSONE 20 MG TABLET (UD) PO ONE (15:42)
[2020-10-12] MEDS ORDERED: ALBUTEROL SO4 2.5/IPRATROPIUM 0.5 INH SOL 3 ML VIAL.NEB. NEB ONE ×2 (15:50→17:35)
[2020-10-12] MEDS ORDERED: predniSONE 20 MG TABLET (UD) ONE (15:50)
== END 2020-10-12 18:39 | disposition home or self-care (01) ==
LOC: JER 15:21
PROC: 3E0F7GC Introduction of Other Therapeutic Substance into Respiratory Tract, Via Natural or Artificial Opening (ICD-10-PCS; principal; 2020-10-12)
DX: J45.21 Mild intermittent asthma with (acute) exacerbation (principal)
CPT/HCPCS: 71046-TC-FY; 99284-25; C9803; U0003

== ENCOUNTER 2021-02-13 20:06 | Emergency (ER) | payer OTHER ==
[2021-02-13 20:14] VITALS: BP 128/74; PULSE 103; TEMP 100.7; BMI 28.3
[2021-02-13] MEDS ORDERED: ACETAMINOPHEN 325 MG TABLET (FP) PO ONE (21:06)
[2021-02-13] MEDS ORDERED: ACETAMINOPHEN 325 MG TABLET (FP) ONE (22:51)
== END 2021-02-13 21:00 | disposition home or self-care (01) ==
LOC: JER 20:06
DX: J06.9 Acute upper respiratory infection, unspecified (principal); Z11.52 Encounter for screening for COVID-19
CPT/HCPCS: 71045-TC-FY; 87804; 99284-25; C9803; U0003; U0005

== ENCOUNTER 2021-09-30 17:05 | Emergency (ER) | payer OTHER ==
[2021-09-30 17:13] VITALS: BP 136/80; PULSE 91; TEMP 98.4; BMI 31.4
[2021-09-30] MEDS ORDERED: KETOROLAC TROMETHAMINE 30 MG/1 ML VIAL IM ONE (17:57)
[2021-09-30] MEDS ORDERED: KETOROLAC TROMETHAMINE 30 MG/1 ML VIAL ONE (18:19)
== END 2021-09-30 19:04 | disposition home or self-care (01) ==
LOC: JER 17:05 → MERGE 17:05 → JER 19:04
PROC: 3E023GC Introduction of Other Therapeutic Substance into Muscle, Percutaneous Approach (ICD-10-PCS; principal; 2021-09-30)
DX: R07.9 Chest pain, unspecified (principal)
CPT/HCPCS: 71046-TC-FY; 93005; 93010; 96372; 99284-25

== ENCOUNTER 2022-11-06 20:53 | Emergency (ER) | payer OTHER ==
[2022-11-06 20:58] VITALS: BP 132/77; PULSE 90; RESP 17; TEMP 98.1; BMI 32.5
[2022-11-06] MEDS ORDERED: DEXAMETHASONE SOD PHOSPHATE 10 MG/1 ML VIAL IM ONE (23:24)
[2022-11-06] MEDS ORDERED: ALBUTEROL SO4 2.5/IPRATROPIUM 0.5 INH SOL 3 ML VIAL.NEB. NEB ONE (23:30)
[2022-11-06] MEDS: ALBUTEROL SO4 2.5/IPRATROPIUM 0.5 INH SOL 3 ML VIAL.NEB. NEB SCH ×2 (23:33→23:36)
[2022-11-06] MEDS ORDERED: DEXAMETHASONE SOD PHOSPHATE 10 MG/1 ML VIAL ONE (23:47)
== END 2022-11-07 01:00 | disposition home or self-care (01) ==
LOC: JERFT 20:53 → JER 20:53
PROC: 3E023GC Introduction of Other Therapeutic Substance into Muscle, Percutaneous Approach (ICD-10-PCS; principal; 2022-11-06)
PROC: 3E0F7GC Introduction of Other Therapeutic Substance into Respiratory Tract, Via Natural or Artificial Opening (ICD-10-PCS; 2022-11-06)
DX: J45.909 Unspecified asthma, uncomplicated (principal)
CPT/HCPCS: 71046-TC-FY; 93005; 93010; 99284-25; J1100

== ENCOUNTER 2023-02-26 02:14 | Emergency (ER) | payer OTHER ==
[2023-02-26 02:19] VITALS: BP 143/90; PULSE 73; RESP 16; TEMP 98.2; BMI 32.5
[2023-02-26] MEDS ORDERED: FAMOTIDINE 20 MG TABLET PO ONE (02:39)
[2023-02-26] MEDS ORDERED: DEXAMETHASONE SOD PHOSPHATE 10 MG/1 ML VIAL IM ONE (02:39)
[2023-02-26] MEDS ORDERED: diphenhydrAMINE HCL 50 MG CAPSULE PO ONE (02:39)
[2023-02-26] MEDS ORDERED: FAMOTIDINE 20 MG TABLET ONE (02:42)
[2023-02-26] MEDS ORDERED: diphenhydrAMINE HCL 25 MG CAPSULE (FP) PO ONE (02:42)
[2023-02-26] MEDS ORDERED: DEXAMETHASONE SOD PHOSPHATE 10 MG/1 ML VIAL ONE (02:43)
== END 2023-02-26 03:40 | disposition home or self-care (01) ==
LOC: JER 02:14
PROC: 3E023GC Introduction of Other Therapeutic Substance into Muscle, Percutaneous Approach (ICD-10-PCS; principal; 2023-02-26)
DX: L50.9 Urticaria, unspecified (principal); R21 Rash and other nonspecific skin eruption
CPT/HCPCS: 99284-25; J1100

== ENCOUNTER 2023-03-09 11:39 | Inpatient (IN) | payer SELFPAY ==
[2023-03-09 13:22] LABS: BASO % 1.1 % (0-2.0); EOS % 4.9 % (0-4.5); HEMATOCRIT 43.2 % (35.4-49); HEMOGLOBIN 14.7 GM/dL (11.7-16.9); LYMPH % 17.8 % (8-40); MCH 30.9 pg (25.7-33.7); MEAN PLT VOLUME 8.4 fl (7.5-11.1); MONO % 6.8 % (3.8-10.2); NEUT % 69.4 % (42.8-82.8); PLATELET COUNT 271 10^3/uL (134-434); RBC 4.75 M/mm3 (4.00-5.60); WHITE BLOOD COUNT 8.8 K/mm3 (4.0-10.0)
[2023-03-09 13:51] LABS: POTASSIUM 4.5 mmol/L (3.5-5.1)
[2023-03-09 13:53] LABS: ALBUMIN 3.8 g/dl (3.4-5.0); BLOOD UREA NITROGEN 9.9 mg/dL (7-18); CALCIUM 8.7 mg/dL (8.5-10.1)
[2023-03-09 13:55] LABS: MAGNESIUM 2.1 mg/dL (1.8-2.4)
[2023-03-09 13:57] LABS: CREATININE 0.9 mg/dL (0.55-1.3)
[2023-03-09 13:58] LABS: BILIRUBIN,TOTAL 0.3 mg/dL (0.2-1); TOT PROT 7.5 g/dl (6.4-8.2)
[2023-03-10 06:31] LABS: INR 1.1 (0.83-1.09); PROTHROMBIN TIME (PATIENT) 12.8 SEC (9.7-13.0)
[2023-03-10 06:42] LABS: POTASSIUM 3.9 mmol/L (3.5-5.1)
[2023-03-10 06:45] LABS: CALCIUM 8.8 mg/dL (8.5-10.1)
[2023-03-10 06:46] LABS: ALBUMIN 3.6 g/dl (3.4-5.0); BLOOD UREA NITROGEN 11.6 mg/dL (7-18)
[2023-03-10 06:49] LABS: CREATININE 1.1 mg/dL (0.55-1.3)
[2023-03-10 06:51] LABS: BILIRUBIN,TOTAL 0.7 mg/dL (0.2-1)
[2023-03-10 07:24] LABS: BASO % 0.9 % (0-2.0); HEMATOCRIT 43.6 % (35.4-49); LYMPH % 21.7 % (8-40); MCH 30.7 pg (25.7-33.7); MCHC 34.5 g/dl (32.0-35.9); MEAN CELL VOLUME 89.1 fl (80-96); NEUT % 65.4 % (42.8-82.8); PLATELET COUNT 259 10^3/uL (134-434); RBC 4.89 M/mm3 (4.00-5.60); RDW 14.1 % (11.9-15.9); WHITE BLOOD COUNT 8.6 K/mm3 (4.0-10.0)
[2023-03-10 08:57] LABS: COCAINE, UR NEGATIVE (NEGATIVE); OPIATES, URI NEGATIVE (NEGATIVE); PHENCYCLIDINE,URINE NEGATIVE (NEGATIVE); URINE AMPHETAMINES NEGATIVE (NEGATIVE); URINE BENZODIAZEPINES NEGATIVE (NEGATIVE)
[2023-03-10 08:58] LABS: URINE BARBITURATES NEGATIVE (NEGATIVE)
[2023-03-10 09:08] LABS: METHADONE, UR NEGATIVE (NEGATIVE)
[2023-03-10] MEDS: BUDESONIDE/FORMETEROL FUMARATE 80/4.5 mcg INHALER IH SCH ×2 (09:24→21:31)
[2023-03-10] MEDS ORDERED: BUDESONIDE/FORMETEROL FUMARATE 80/4.5 mcg INHALER IH SCH (10:00)
[2023-03-10] MEDS: levETIRAcetam 250 MG TABLET PO SCH (21:31)
[2023-03-11 07:06] LABS: BASO % 0.5 % (0-2.0); EOS % 5.4 % (0-4.5); HEMATOCRIT 43.5 % (35.4-49); HEMOGLOBIN 14.8 GM/dL (11.7-16.9); MCH 30.8 pg (25.7-33.7); MEAN CELL VOLUME 90.7 fl (80-96); MEAN PLT VOLUME 8.2 fl (7.5-11.1); MONO % 6.5 % (3.8-10.2); NEUT % 66.6 % (42.8-82.8); PLATELET COUNT 255 10^3/uL (134-434); RDW 13.8 % (11.9-15.9); WHITE BLOOD COUNT 8.1 K/mm3 (4.0-10.0)
[2023-03-11 07:32] LABS: POTASSIUM 3.8 mmol/L (3.5-5.1)
[2023-03-11 07:33] LABS: CALCIUM 8.5 mg/dL (8.5-10.1)
[2023-03-11 07:34] LABS: BLOOD UREA NITROGEN 15.8 mg/dL (7-18)
[2023-03-11] MEDS: levETIRAcetam 250 MG TABLET PO SCH ×2 (09:26→21:06)
[2023-03-11] MEDS: BUDESONIDE/FORMETEROL FUMARATE 80/4.5 mcg INHALER IH SCH ×2 (09:27→21:06)
[2023-03-11 12:33] VITALS: BMI 33.6
[2023-03-11] MEDS ORDERED: ALBUTEROL SO4 HFA INHALER IH PRN ×2 (16:06→16:15)
[2023-03-12 07:00] LABS: HEMATOCRIT 43.9 % (35.4-49); HEMOGLOBIN 14.8 GM/dL (11.7-16.9); MCH 30.7 pg (25.7-33.7); MCHC 33.6 g/dl (32.0-35.9); MEAN CELL VOLUME 91.5 fl (80-96); MEAN PLT VOLUME 8.5 fl (7.5-11.1); PLATELET COUNT 256 10^3/uL (134-434); RDW 14.1 % (11.9-15.9); WHITE BLOOD COUNT 8.4 K/mm3 (4.0-10.0)
[2023-03-12 07:25] LABS: POTASSIUM 3.9 mmol/L (3.5-5.1)
[2023-03-12 07:29] LABS: CALCIUM 8.6 mg/dL (8.5-10.1)
[2023-03-12 07:30] LABS: ALBUMIN 3.4 g/dl (3.4-5.0); BLOOD UREA NITROGEN 13.7 mg/dL (7-18); MAGNESIUM 2.2 mg/dL (1.8-2.4)
[2023-03-12 07:33] LABS: PHOSPHOROUS 4.4 mg/dL (2.5-4.9)
[2023-03-12 07:35] LABS: BILIRUBIN,TOTAL 0.7 mg/dL (0.2-1)
[2023-03-12] MEDS: levETIRAcetam 250 MG TABLET PO SCH (09:17)
[2023-03-12] MEDS: BUDESONIDE/FORMETEROL FUMARATE 80/4.5 mcg INHALER IH SCH (09:17)
[2023-03-12] MEDS ORDERED: BUDESONIDE/FORMETEROL FUMARATE 80/4.5 mcg INHALER IH SCH (10:00)
[2023-03-12] MEDS ORDERED: levETIRAcetam 250 MG TABLET PO SCH (10:00)
[2023-03-12 10:07] VITALS: TEMP 98.5
[2023-03-12 13:01] VITALS: BP 127/67; PULSE 77; RESP 14
== END 2023-03-12 13:40 | disposition home or self-care (01) | DRG 44 ==
LOC: JER 11:39 → JERBED 18:17 → JICU 22:26
PROVIDERS: ADMIT Internal Medicine; ATTEND Internal Medicine
DX: I61.9 Nontraumatic intracerebral hemorrhage, unspecified (principal); J45.20 Mild intermittent asthma, uncomplicated; R07.89 Other chest pain; R20.0 Anesthesia of skin; R20.2 Paresthesia of skin; E66.9 Obesity, unspecified; Z68.33 Body mass index [BMI] 33.0-33.9, adult
CPT/HCPCS: 36415; 70450-TC; 70496-TC; 70553-TC; 71045-TC-FY; 80048; 80053; 80061; 80307; 83036; 83735; 84100; 84484; 85025; 85027; 85610; 93005; 93010; 97162-GP; 99285-25; Q9967

== ENCOUNTER 2023-04-07 11:06 | Emergency (ER) | payer OTHER ==
[2023-04-07 11:19] VITALS: RESP 18; TEMP 98.3; BMI 33.0
[2023-04-07] MEDS ORDERED: MECLIZINE HCL 25 MG TABLET (FP) PO ONE (11:31)
[2023-04-07] MEDS ORDERED: MECLIZINE HCL 25 MG TABLET (FP) ONE (11:32)
[2023-04-07] MEDS ORDERED: ACETAMINOPHEN 325 MG TABLET (FP) PO ONE (11:32)
[2023-04-07] MEDS ORDERED: ACETAMINOPHEN 325 MG TABLET (FP) ONE (11:33)
[2023-04-07 12:07] VITALS: BP 135/81; PULSE 66
== END 2023-04-07 13:37 | disposition home or self-care (01) ==
LOC: JERFT 11:06
DX: R51.9 Headache, unspecified (principal); R42 Dizziness and giddiness; R20.2 Paresthesia of skin; I69.114 Frontal lobe and executive function deficit following nontraumatic intracerebral hemorrhage
CPT/HCPCS: 70450-TC; 82962; 93005; 93010; 99284-25

== ENCOUNTER 2024-02-14 20:47 | Inpatient (IN) | payer OTHER ==
[2024-02-14 20:52] VITALS: BMI 29.9
[2024-02-14] MEDS ORDERED: ONDANSETRON 4 MG/2 ML VIAL ONE (21:11)
[2024-02-14 21:27] LABS: BASO % 0.6 % (0-2.0); EOS % 2.2 % (0-4.5); HEMATOCRIT 44.1 % (35.4-49); HEMOGLOBIN 15.5 GM/dL (11.7-16.9); LYMPH % 20.4 % (8-40); MCH 31.8 pg (25.7-33.7); MCHC 35.2 g/dl (32.0-35.9); MEAN CELL VOLUME 90.5 fl (80-96); MEAN PLT VOLUME 7.3 fl (7.5-11.1); MONO % 8.6 % (3.8-10.2); NEUT % 68.2 % (42.8-82.8); PLATELET COUNT 283 10^3/uL (134-434); RBC 4.88 M/mm3 (4.00-5.60); RDW 13.9 % (11.9-15.9); WHITE BLOOD COUNT 7.5 K/mm3 (4.0-10.0)
[2024-02-14] MEDS: ONDANSETRON 4 MG/2 ML VIAL IVPUSH ONE (21:28)
[2024-02-14] MEDS: SODIUM CHLORIDE 0.9% 500 ML INFUS.BAG IV ONE (21:28)
[2024-02-14] MEDS ORDERED: ACETAMINOPHEN INJECTION 100 ML IVPB ONE (21:47)
[2024-02-14 21:48] LABS: CHLORIDE 102 mmol/L (98-107); POTASSIUM 4.1 mmol/L (3.5-5.1); SODIUM 140 mmol/L (136-145)
[2024-02-14 21:50] LABS: ALBUMIN 3.8 g/dl (3.4-5.0); CALCIUM 8.9 mg/dL (8.5-10.1)
[2024-02-14 21:51] LABS: ANION GAP 10 mmol/L (4-13); BLOOD UREA NITROGEN 12.2 mg/dL (7-18); CO2 29 mmol/L (21-32); GLUCOSE,RANDOM 115 mg/dL (74-106)
[2024-02-14] MEDS: ACETAMINOPHEN 1000 MG/100 ML BAG IVPB ONE (21:52)
[2024-02-14 21:54] LABS: SGOT/AST 44 U/L (15-37); SGPT/ALT 68 U/L (13-61)
[2024-02-14 21:55] LABS: BILIRUBIN,TOTAL 0.6 mg/dL (0.2-1)
[2024-02-14 21:57] LABS: ALK PHOS 101 U/L (45-117)
[2024-02-15] MEDS ORDERED: MORPHINE SULFATE 2 MG/ML SYRINGE ONE (00:57)
[2024-02-15] MEDS ORDERED: levETIRAcetam 500 MG/5 ML INJECTION VIAL IVPB ONE (00:57)
[2024-02-15] MEDS: morphine CARPU-JECT 2 MG/1 ML DISP.SYRIN IVPUSH ONE (01:14)
[2024-02-15] MEDS: levETIRAcetam 500 MG/5 ML INJECTION VIAL IVPB ONE (01:14)
[2024-02-15 01:25] LABS: INR 1.08 (0.83-1.09); PROTHROMBIN TIME (PATIENT) 12.4 SEC (9.7-13.0)
[2024-02-15 01:28] LABS: ACTIVATED PTT 32.3 SECONDS (25.2-36.5)
[2024-02-15] MEDS: SODIUM CHLORIDE 1,000 ML IV SCH (06:12)
[2024-02-15] MEDS: SODIUM CHLORIDE 1,000 ML IV STA (06:13)
[2024-02-15 06:41] LABS: PHENCYCLIDINE,URINE NEGATIVE (NEGATIVE); URINE BARBITURATES NEGATIVE (NEGATIVE)
[2024-02-15 06:42] LABS: COCAINE, UR NEGATIVE (NEGATIVE); METHADONE, UR NEGATIVE (NEGATIVE); OPIATES, URI POSITIVE (NEGATIVE); URINE AMPHETAMINES NEGATIVE (NEGATIVE); URINE BENZODIAZEPINES NEGATIVE (NEGATIVE)
[2024-02-15 06:44] LABS: BASO % 0.7 % (0-2.0); EOS % 3.9 % (0-4.5); HEMATOCRIT 44.4 % (35.4-49); HEMOGLOBIN 14.9 GM/dL (11.7-16.9); LYMPH % 23.2 % (8-40); MCH 31.1 pg (25.7-33.7); MCHC 33.6 g/dl (32.0-35.9); MEAN CELL VOLUME 92.7 fl (80-96); MONO % 7.5 % (3.8-10.2); NEUT % 64.7 % (42.8-82.8); PLATELET COUNT 274 10^3/uL (134-434); RBC 4.79 M/mm3 (4.00-5.60); RDW 13.9 % (11.9-15.9); WHITE BLOOD COUNT 8.5 K/mm3 (4.0-10.0)
[2024-02-15 06:51] LABS: CHLORIDE 104 mmol/L (98-107); POTASSIUM 3.9 mmol/L (3.5-5.1); SODIUM 138 mmol/L (136-145)
[2024-02-15 06:53] LABS: ALBUMIN 3.6 g/dl (3.4-5.0); ANION GAP 7 mmol/L (4-13); BLOOD UREA NITROGEN 12.1 mg/dL (7-18); CALCIUM 8.8 mg/dL (8.5-10.1); CO2 27 mmol/L (21-32); GLUCOSE,RANDOM 99 mg/dL (74-106); MAGNESIUM 2.3 mg/dL (1.8-2.4)
[2024-02-15 06:56] LABS: SGOT/AST 38 U/L (15-37); SGPT/ALT 62 U/L (13-61)
[2024-02-15 06:58] LABS: BILIRUBIN,TOTAL 0.8 mg/dL (0.2-1); TOT PROT 7.1 g/dl (6.4-8.2)
[2024-02-15 06:59] LABS: ALK PHOS 97 U/L (45-117)
[2024-02-15] MEDS ORDERED: ALBUTEROL SO4 HFA INHALER IH PRN (07:47)
[2024-02-15] MEDS ORDERED: ACETAMINOPHEN INJECTION 100 ML IVPB ONE (08:53)
[2024-02-15 08:59] LABS: PH,URINE 6.5 (5.0-8.0); URINE APPEARANCE Clear; URINE BILIRUBIN Negative (NEGATIVE); URINE COLOR Yellow; URINE GLUCOSE (UA) Negative (NEGATIVE); URINE KETONE Negative (NEGATIVE); URINE LEUK ESTERASE Negative (NEGATIVE); URINE NITRITE Negative (NEGATIVE); URINE PROTEIN Negative (NEGATIVE); URINE UROBILINOGEN 0.2 mg/dL (0.2-1.0)
[2024-02-15] MEDS: ACETAMINOPHEN 1000 MG/100 ML BAG IVPB PRN (09:00)
[2024-02-15 10:32] LABS: CHOLESTEROL 116 mg/dL (50-200)
[2024-02-15 10:33] LABS: LDL CHOLESTEROL (ONLY SJRH) 63 mg/dL (5-100)
[2024-02-15 10:35] LABS: HDL CHOLESTEROL 30 mg/dL (40-60)
[2024-02-15] MEDS: THIAMINE 100 MG TABLET PO SCH (13:50)
[2024-02-15] MEDS: FOLIC ACID 1 MG TABLET (FP) PO SCH (13:50)
[2024-02-15] MEDS: chlordiazePOXIDE HCL 10 MG CAPSULE PO SCH (18:03)
[2024-02-16 07:59] LABS: BASO % 0.6 % (0-2.0); EOS % 6.1 % (0-4.5); HEMATOCRIT 43.8 % (35.4-49); HEMOGLOBIN 14.8 GM/dL (11.7-16.9); LYMPH % 29.9 % (8-40); MCH 31.6 pg (25.7-33.7); MCHC 33.9 g/dl (32.0-35.9); MEAN CELL VOLUME 93.4 fl (80-96); MEAN PLT VOLUME 8.4 fl (7.5-11.1); MONO % 6.9 % (3.8-10.2); NEUT % 56.5 % (42.8-82.8); PLATELET COUNT 255 10^3/uL (134-434); RBC 4.69 M/mm3 (4.00-5.60); RDW 13.5 % (11.9-15.9); WHITE BLOOD COUNT 7.3 K/mm3 (4.0-10.0)
[2024-02-16 08:11] LABS: POTASSIUM 4.1 mmol/L (3.5-5.1)
[2024-02-16 08:20] LABS: CALCIUM 8.5 mg/dL (8.5-10.1)
[2024-02-16 08:21] LABS: ALBUMIN 3.5 g/dl (3.4-5.0); BLOOD UREA NITROGEN 13.2 mg/dL (7-18)
[2024-02-16 08:25] LABS: TOT PROT 7.1 g/dl (6.4-8.2)
[2024-02-16 08:27] LABS: BILIRUBIN,TOTAL 0.6 mg/dL (0.2-1)
[2024-02-16 22:01] VITALS: RESP 18
[2024-02-17 06:19] VITALS: TEMP 98.1
[2024-02-17 07:27] LABS: HEMATOCRIT 42.6 % (35.4-49); HEMOGLOBIN 14.5 GM/dL (11.7-16.9); MCH 31.5 pg (25.7-33.7); MEAN CELL VOLUME 92.4 fl (80-96); MEAN PLT VOLUME 8.1 fl (7.5-11.1); PLATELET COUNT 253 10^3/uL (134-434); POTASSIUM 3.8 mmol/L (3.5-5.1); RBC 4.61 M/mm3 (4.00-5.60); RDW 13.3 % (11.9-15.9); WHITE BLOOD COUNT 6.9 K/mm3 (4.0-10.0)
[2024-02-17 07:35] LABS: ALBUMIN 3.4 g/dl (3.4-5.0); BLOOD UREA NITROGEN 11.6 mg/dL (7-18); CALCIUM 8.8 mg/dL (8.5-10.1); MAGNESIUM 2.1 mg/dL (1.8-2.4)
[2024-02-17 07:38] LABS: PHOSPHOROUS 4.6 mg/dL (2.5-4.9)
[2024-02-17 07:39] LABS: BILIRUBIN,TOTAL 0.5 mg/dL (0.2-1)
[2024-02-17 15:48] VITALS: BP 137/86; PULSE 74
== END 2024-02-17 16:20 | disposition home or self-care (01) | DRG 422 ==
LOC: JER 20:47 → JERBED 23:22 → J4W 02-15 13:46
PROVIDERS: ADMIT Internal Medicine; ATTEND Internal Medicine
DX: E86.0 Dehydration (principal); I62.03 Nontraumatic chronic subdural hemorrhage; E11.9 Type 2 diabetes mellitus without complications; I10 Essential (primary) hypertension; R11.2 Nausea with vomiting, unspecified; R42 Dizziness and giddiness; F12.90 Cannabis use, unspecified, uncomplicated; K29.70 Gastritis, unspecified, without bleeding; R58 Hemorrhage, not elsewhere classified; G44.209 Tension-type headache, unspecified, not intractable; F10.10 Alcohol abuse, uncomplicated; J45.909 Unspecified asthma, uncomplicated; E78.1 Pure hyperglyceridemia
CPT/HCPCS: 36415; 70450-TC; 70496-TC; 70498-TC; 70553-TC; 80048; 80053; 80061; 80307; 81003; 82962; 83036; 83735; 84100; 84439; 84443; 84484; 85025; 85027; 85610; 85730; 86850; 86900; 86901; 87086; 93005; 93010; 93306-TC; 97116-GP; 97161-GP; 99285-25; J0131

== ENCOUNTER 2024-04-26 01:56 | Emergency (ER) | payer OTHER ==
[2024-04-26 02:08] VITALS: BP 150/86; PULSE 84; RESP 19; TEMP 98.8; BMI 30.9
[2024-04-26] MEDS ORDERED: ALBUTEROL SO4 2.5/IPRATROPIUM 0.5 INH SOL 3 ML VIAL.NEB. NEB ONE (02:44)
[2024-04-26] MEDS: ALBUTEROL SO4 2.5/IPRATROPIUM 0.5 INH SOL 3 ML VIAL.NEB. NEB ONE (02:54)
[2024-04-26 02:59] LABS: BASO % 0.7 % (0-2.0); EOS % 6.7 % (0-4.5); HEMATOCRIT 43.3 % (35.4-49); HEMOGLOBIN 14.8 GM/dL (11.7-16.9); LYMPH % 18.5 % (8-40); MCH 30.7 pg (25.7-33.7); MCHC 34.1 g/dl (32.0-35.9); MEAN CELL VOLUME 89.9 fl (80-96); MEAN PLT VOLUME 7.5 fl (7.5-11.1); MONO % 7.8 % (3.8-10.2); NEUT % 66.3 % (42.8-82.8); PLATELET COUNT 271 10^3/uL (134-434); RBC 4.82 M/mm3 (4.00-5.60); RDW 13.8 % (11.9-15.9); WHITE BLOOD COUNT 7.1 K/mm3 (4.0-10.0)
[2024-04-26 03:00] LABS: VENOUS BASE EXCESS 0.4 mmol/L (-2-2); VENOUS O2 SATURATION 92.8 % (70-80); VENOUS PCO2 43.9 mmHg (38-52); VENOUS PH 7.386 (7.310-7.410)
[2024-04-26 03:06] LABS: INR 1.05 (0.83-1.09); PROTHROMBIN TIME (PATIENT) 11.8 SEC (9.7-13.0)
[2024-04-26 03:09] LABS: ACTIVATED PTT 33.7 SECONDS (25.2-36.5)
[2024-04-26 03:32] LABS: POTASSIUM 4.1 mmol/L (3.5-5.1)
[2024-04-26 03:34] LABS: ALBUMIN 3.6 g/dl (3.4-5.0); BLOOD UREA NITROGEN 10.4 mg/dL (7-18); CALCIUM 8.9 mg/dL (8.5-10.1)
[2024-04-26 03:38] LABS: CREATININE 0.9 mg/dL (0.55-1.3)
[2024-04-26 03:39] LABS: BILIRUBIN,TOTAL 0.3 mg/dL (0.2-1); TOT PROT 7.6 g/dl (6.4-8.2)
[2024-04-26] MEDS ORDERED: KETOROLAC TROMETHAMINE 30 MG/1 ML VIAL ONE (04:28)
[2024-04-26] MEDS: KETOROLAC TROMETHAMINE 30 MG/1 ML VIAL IVPUSH ONE (04:35)
== END 2024-04-26 04:48 | disposition home or self-care (01) ==
LOC: JER 01:56
PROC: 3E0333Z Introduction of Anti-inflammatory into Peripheral Vein, Percutaneous Approach (ICD-10-PCS; principal; 2024-04-26)
PROC: 3E0F7GC Introduction of Other Therapeutic Substance into Respiratory Tract, Via Natural or Artificial Opening (ICD-10-PCS; 2024-04-26)
DX: R42 Dizziness and giddiness (principal); R06.02 Shortness of breath; R05.9 Cough, unspecified; R09.81 Nasal congestion; R51.9 Headache, unspecified; Z20.822 Contact with and (suspected) exposure to COVID-19
CPT/HCPCS: 0241U-QW; 36415; 70450-TC; 71046-TC-FY; 80053; 82803; 83690; 83735; 85025; 85610; 85730; 86850; 86900; 86901; 93005; 93010; 99285-25